=== PATIENT | female | born 1975 | race African-American/Black ===

== ENCOUNTER 2016-12-29 07:33 | Day surgery (SDC) | payer OTHER ==
[2016-12-28 10:20] VITALS: BMI 29.7
[2016-12-29] MEDS ORDERED: ePHEDrine SULFATE 50 MG/1 ML AMPULE ONE (08:11)
[2016-12-29] MEDS ORDERED: MIDAZOLAM HCL 2 MG/2 ML SINGLE DOSE VIAL ONE ×2 (08:12→09:04)
[2016-12-29] MEDS ORDERED: SUCCINYLCHOLINE CHLORIDE 200 MG/10 ML VIAL ONE (08:12)
[2016-12-29] MEDS ORDERED: PROPOFOL 20 ML ONE ×3 (08:12)
[2016-12-29] MEDS ORDERED: ONDANSETRON 4 MG/2 ML VIAL IVPUSH PRN (08:16)
[2016-12-29] MEDS ORDERED: PROMETHAZINE HCL 25 MG/1 ML VIAL IVPUSH PRN (08:16)
--- NOTE | 2016-12-29 08:26 | HP ---
Past Medical History - Admission Chief Complaint: Irregular menses History of Present Illness: 41 yo Para 4, with personal h/o thyroid disease and anemia is Pre op for D&C Hysteroscopy. 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 - Alcohol/Substance Use Hx Alcohol Use: Yes (OCCAS) - Social History History of Recent Travel: No Home Medications - Allergies Allergies/Adverse Reactions: Allergies Allergy/AdvReac Type Severity Reaction Status Date / Time No Known Allergies Allergy Verified 12/29/16 07:56 - Home Medications Home Medications: Ambulatory Orders NK [No Known Home Medication] 12/28/16 Family Disease History - Family Disease History Family History: Unremarkable Review of Systems - Review of Systems Constitutional: reports: No Symptoms Eyes: reports: No Symptoms HENT: reports: No Symptoms Neck: reports: No Symptoms Cardiovascular: reports: No Symptoms Respiratory: reports: No Symptoms Gastrointestinal: reports: No Symptoms Genitourinary: reports: Vaginal Bleeding Breasts: reports: No Symptoms Reported Musculoskeletal: reports: No Symptoms Integumentary: reports: No Symptoms Neurological: reports: No Symptoms Endocrine: reports: No Symptoms Hematology/Lymphatic: reports: No Symptoms Psychiatric: reports: No Symptoms Pain Intensity: 0 Physical Exam - Maternity Vital Signs: Vital Signs Temperature 97.8 F 12/29/16 07:57 Pulse Rate 80 12/29/16 07:57 Respiratory Rate 20 12/29/16 07:57 Blood Pressure 116/74 12/29/16 07:57 O2 Sat by Pulse Oximetry (%) 100 12/29/16 07:58 Constitutional: Yes: Well Nourished Eyes: Yes: Conjunctiva Clear HENT: Yes: Atraumatic Neck: Yes: Supple, Trachea Midline Cardiovascular: Yes: Regular Rate and Rhythm Lungs: Clear to auscultation - Abdominal Exam/OB Number of Fetuses: Single Presentation: Vertex Contractions: No Intensity: Mild/Mod - Vaginal Exam/OB Vaginal Bleediing: No - Physical Exam Psychiatric: Yes: Alert, Oriented Problem List - Problems (1) Irregular menstrual bleeding Code(s): N92.6 - IRREGULAR MENSTRUATION, UNSPECIFIED (2) Anemia Code(s): D64.9 - ANEMIA, UNSPECIFIED Assessment/Plan Irregular menstrual bleeding Anemia Pre op for D&C Hysteroscopy Consent signed Anesthesia to see patient
--- NOTE | 2016-12-29 08:27 | OP ---
Operative Note - Note: Operative Date: 12/29/16 Pre-Operative Diagnosis: Irregular menstrual bleeding Operation: D&C Hysteroscopy Post-Operative Diagnosis: Same as Pre-op Surgeon: Fiona Cortez Anesthesia: General
[2016-12-29] MEDS ORDERED: LACTATED RINGERS SOLUTION 1,000 ML IV SCH (08:30)
[2016-12-29] MEDS ORDERED: DESFLURANE GAS 240 ML BOTTLE IH ONE (08:57)
[2016-12-29] MEDS ORDERED: MIDAZOLAM HCL 2 MG/2 ML SINGLE DOSE VIAL IVPUSH PRN (09:17)
[2016-12-29] MEDS ORDERED: MIDAZOLAM HCL 2 MG/2 ML SINGLE DOSE VIAL IVPUSH ONE (09:20)
[2016-12-29 11:46] VITALS: TEMP 97.9
[2016-12-29 12:32] VITALS: BP 124/67; PULSE 75
--- NOTE | 2016-12-30 12:39 | OP ---
DATE OF OPERATION: 12/29/2016 PREOPERATIVE DIAGNOSIS: Irregular menstrual period associated with anemia. POSTOPERATIVE DIAGNOSIS: Irregular menstrual period associated with anemia. PROCEDURE: Dilation and curettage, hysteroscopy. SURGEON: Fiona Cortez MD ANESTHESIA: General. COMPLICATIONS: None. ESTIMATED BLOOD LOSS: Less than 10 mL. DESCRIPTION OF PROCEDURE: The patient was taken to the operating room where general anesthesia was administered. The patient was then placed in lithotomy position. She was then prepped and draped in proper sterile fashion. A weighted speculum was placed in the vagina. The anterior lip of the cervix was grasped with a single- tooth tenaculum. Then the uterus was then sounded. There was a significant amount of cervical stenosis. It was then successfully dilated with the help of Sánchez dilators; a 5-mm hysteroscope was then gently introduced into the uterine cavity. The cavity was visualized. Then a sharp curettage was then performed. The instruments were removed and patient was taken out of lithotomy position. She was taken to PACU in stable condition. PATHOLOGY: Endometrial curettings. Kvng [id number] MTDD
--- NOTE | 2017-01-01 09:12 | PATH ---
Surgical Pathology Report Patient Name: JOSE PATHAK [facility]. Rec. #: [id number] /Age/Gender: 1975 (Age: 41) / F Account: [id number] Location: [facility] SURGICAL Taken: 12/29/2016 Received: 12/29/2016 Reported: 01/01/2017 Physicians: Fiona Cortez M.D. Specimen(s) Received ENDOMETRIAL CURETTINGS Clinical History Irregular bleeding menstruation Final Diagnosis ENDOMETRIUM, CURETTING: SECRETORY ENDOMETRIUM, AND BENIGN CERVICAL TISSUE. NO ENDOMETRIAL HYPERPLASIA OR CARCINOMA IDENTIFIED. Electronically Signed Farrukh Khan M.D. Gross Description Received in formalin labeled "endometrial curettage" is a 3.0 x 2.5 x 0.3 cm aggregate of machado-red soft tissue fragments admixed with blood-tinged mucous. The formalin is filtered and the specimen is entirely submitted in one cassette. 12/29/201612/29/2016
== END 2016-12-29 11:40 | disposition home or self-care (01) ==
LOC: JASU-SURG 07:33
PROVIDERS: ATTEND Obstetrics & Gynecology
PROC: 0UDB8ZX Extraction of Endometrium, Via Natural or Artificial Opening Endoscopic, Diagnostic (ICD-10-PCS; principal; 2016-12-29 08:00)
DX: N93.9 Abnormal uterine and vaginal bleeding, unspecified (principal); D64.9 Anemia, unspecified
CPT/HCPCS: 84703; 88305-TC; 94760

== ENCOUNTER 2018-11-02 11:29 | Observation (INO) | payer OTHER ==
[2018-11-02] MEDS ORDERED: diazePAM 5 MG TABLET PO ONE (12:32)
[2018-11-02] MEDS ORDERED: diazePAM 5 MG TABLET ONE (12:35)
[2018-11-02 12:38] LABS: BASO % 0.9 % (0-2.0); EOS % 2.4 % (0-4.5); HEMOGLOBIN 9.9 GM/dL (10.7-15.3); LYMPH % 36.5 % (8-40); MCH 23.5 pg (25.7-33.7); MEAN CELL VOLUME 73.5 fl (80-96); MEAN PLT VOLUME 7.4 fl (7.5-11.1); MONO % 9.7 % (3.8-10.2); NEUT % 50.5 % (42.8-82.8); PLATELET COUNT 341 K/MM3 (134-434); RBC 4.22 M/mm3 (3.60-5.2); RDW 17.1 % (11.6-15.6); WHITE BLOOD COUNT 5.4 K/mm3 (4.0-10.0)
--- NOTE | 2018-11-02 13:10 | PDOC ---
History of Present Illness <Camille Bruno - Last Filed: 11/02/18 14:01> - History of Present Illness Initial Comments: 11/02/18 13:04 The patient is a 43 year old female, with a significant past medical history of hypothyroidism (not on medications) and cocaine abuse, who presents to the emergency department with, 3 months of intermittent body convulsions and seizure -like activity. Patient describes her convulsions as full body, lasting between 5min-1hour, and occurring every few days. Pt states that during these episodes, her entire body shakes. Her has witnessed several of them and report that she is sometimes awake during the episodes, sometimes unconscious. Pt states that she has complete recollection of these episodes. Pt initially went to [facility] after her first episode but eloped before her work up was complete. She has not seen a doctor since then. Pt endorses occasional ETOH and cocaine use. Last drink was 4 days ago. She denies any history of withdrawal seizures. Last cocaine use was 1 week ago. Pt denies any prior history of seizures. Denies head injury recently. She denies recent fevers. She denies recent nausea, vomit, diarrhea or constipation. She denies recent dysuria, frequency, urgency or hematuria. She denies recent chest pain, palpitations, or diaphoresis. While in ED, pt was witnessed to have an episode of convulsions. During this episode, pt was alert and responsive, able to follow commands. The episode terminated spontaneously after approx 2 minutes. Allergies: NKDA Past surgical history: D&C Hysteroscopy (2017). Social history: Day rehab for substance abuse at [facility]. Cocaine usage ( Last use- a week ago). Alcohol usage (a few beers last use: 3). <Esvin Trujillo - Last Filed: 11/02/18 14:25> - General Chief Complaint: Pain Stated Complaint: SEIZURE RULEOUT Time Seen by Provider: 11/02/18 11:49 Past History <Camille Bruno - Last Filed: 11/02/18 14:01> - Past Medical History Anemia: Yes Asthma: No Cancer: No Cardiac Disorders: No CVA: No COPD: No CHF: No Dementia: No Diabetes: No GI Disorders: No Disorders: No HTN: No Hypercholesterolemia: No Liver Disease: No Seizures: No Thyroid Disease: Yes ("UNDERACTIVE") - Surgical History Abdominal Surgery: Yes ("NE[place]") - Suicide/Smoking/Psychosocial Hx Smoking History: Current some day smoker Have you smoked in the past 12 months: No 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, 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 No weakness. HEAD, EYES, EARS, NOSE AND THROAT: No change in vision. No ear pain or discharge. No sore throat. CARDIOVASCULAR: No chest pain, no shortness of breath, no loss of consciousness RESPIRATORY: No cough, wheezing, or hemoptysis. GASTROINTESTINAL: No nausea, vomiting, diarrhea or constipation. GENITOURINARY: No dysuria, frequency, or change in urination. MUSCULOSKELETAL: No joint or muscle swelling or pain. No neck or back pain. SKIN: No rash NEUROLOGIC: + convulsions, No vertigo, no change in strength/sensation. ENDOCRINE: No increased thirst. No abnormal weight change. HEMATOLOGIC/LYMPHATIC: No anemia, easy bleeding, or history of blood clots. ALLERGIC/IMMUNOLOGIC: No hives or skin allergy. <RonnieEsvin - Last Filed: 11/02/18 14:25> *Physical Exam - Vital Signs Last Vital Signs Temp Pulse Resp BP Pulse Ox 97.7 F 86 20 135/85 100 11/02/18 11:37 11/02/18 13:31 11/02/18 13:31 11/02/18 13:31 11/02/18 13:31 <Camille Bruno - Last Filed: 11/02/18 14:01> - Vital Signs Last Vital Signs Temp Pulse Resp BP Pulse Ox 97.7 F 73 18 132/76 100 11/02/18 11:37 11/02/18 11:37 11/02/18 11:37 11/02/18 11:37 11/02/18 11:37 - Physical Exam Comments: 11/02/18 13:11 GENERAL: Awake, alert, and fully oriented, in no acute distress. HEAD: No signs of trauma EYES: PERRLA, EOMI, sclera anicteric, conjunctiva clear ENT: Auricles normal inspection, hearing grossly normal, nares patent, oropharynx clear without exudates. Moist mucosa NECK: Nontender, no stepoffs, Normal ROM, supple, no lymphadenopathy, JVD, or masses LUNGS: Breath sounds equal, clear to auscultation bilaterally. No wheezes, and no crackles HEART: Regular rate and rhythm, normal S1 and S2, no murmurs, rubs or gallops ABDOMEN: Soft, nontender, normoactive bowel sounds. No guarding, no rebound. No masses EXTREMITIES: Normal range of motion, no edema. No clubbing or cyanosis. No cords, erythema, or tenderness NEUROLOGICAL: Cranial nerves II through XII intact. 5/5 strength and sensation in all extremities, Normal speech, normal gait, normal cerebellar function SKIN: Warm, Dry, normal turgor, no rashes or lesions noted. <Esvin Trujillo - Last Filed: 11/02/18 14:25> Moderate Sedation - Procedure Monitoring Vital Signs: Procedure Monitoring Vital Signs Temperature 97.7 F 11/02/18 11:37 Pulse Rate 86 11/02/18 13:31 Respiratory Rate 20 11/02/18 13:31 Blood Pressure 135/85 11/02/18 13:31 O2 Sat by Pulse Oximetry (%) 100 11/02/18 13:31 <Camille Bruno - Last Filed: 11/02/18 14:01> - Procedure Monitoring Vital Signs: Procedure Monitoring Vital Signs Temperature 97.7 F 11/02/18 11:37 Pulse Rate 73 11/02/18 11:37 Respiratory Rate 18 11/02/18 11:37 Blood Pressure 132/76 11/02/18 11:37 O2 Sat by Pulse Oximetry (%) 100 11/02/18 11:37 <Esvin Trujillo - Last Filed: 11/02/18 14:25> ED Treatment Course - LABORATORY CBC & Chemistry Diagram: 11/02/18 12:20 11/02/18 12:20 - ADDITIONAL ORDERS Additional order review: Laboratory Results 11/02/18 11/02/18 12:20 12:20 Sodium 137 Potassium 4.2 Chloride 106 Carbon Dioxide 24 Anion Gap 7 L BUN 9 Creatinine 0.8 Creat Clearance w eGFR > 60 Random Glucose 93 Lactic Acid 2.7 H* Calcium 8.5 Total Bilirubin 0.4 AST 13 L ALT 19 Alkaline Phosphatase 102 Total Protein 7.5 Albumin 3.5 TSH 0.63 11/02/18 12:20 RBC 4.22 MCV 73.5 L MCHC 32.0 RDW 17.1 H MPV 7.4 L Neutrophils % 50.5 Lymphocytes % 36.5 Monocytes % 9.7 Eosinophils % 2.4 Basophils % 0.9 - Medications Given in the ED: ED Medications Discontinued Medications Generic Name Dose Route Start Last Admin Trade Name Freq PRN Reason Stop Dose Admin Diazepam 5 mg 11/02/18 12:32 11/02/18 12:36 Valium - PO 11/02/18 12:33 5 mg ONCE ONE Administration Lorazepam 2 mg 11/02/18 13:26 11/02/18 13:30 Ativan Injection - IVPUSH 11/02/18 13:27 2 mg ONCE ONE Administration <Camille Bruno - Last Filed: 11/02/18 14:01> - LABORATORY CBC & Chemistry Diagram: 11/02/18 12:20 11/02/18 12:20 - ADDITIONAL ORDERS Additional order review: 11/02/18 12:20 RBC 4.22 MCV 73.5 L MCHC 32.0 RDW 17.1 H MPV 7.4 L Neutrophils % 50.5 Lymphocytes % 36.5 Monocytes % 9.7 Eosinophils % 2.4 Basophils % 0.9 - RADIOLOGY Radiology Studies Ordered: Category Date Time Status HEAD CT WITHOUT CONTRAST [CT] Stat CT Scan 11/02/18 12:17 Ordered CHEST X-RAY PORTABLE* [RAD] Stat Radiology 11/02/18 12:19 Completed - Medications Given in the ED: ED Medications Discontinued Medications Generic Name Dose Route Start Last Admin Trade Name Freq PRN Reason Stop Dose Admin Diazepam 5 mg 11/02/18 12:32 11/02/18 12:36 Valium - PO 11/02/18 12:33 5 mg ONCE ONE Administration <Esvin Trujillo - Last Filed: 11/02/18 14:25> Medical Decision Making - Medical Decision Making 11/02/18 13:[address] Doyle, neurologist theater education teacher's answering service, awaiting theater education teacher back. 14:[address] Doyle, case discussed. <Camilel Bruno - Last Filed: 11/02/18 14:01> - Critical Care Time Total Critical Care Time (minutes): 60 Critical Care Statement: The care of this patient involved high complexity decision making to prevent further life threatening deterioration of the patient 's condition and/or to evaluate & treat vital organ system(s) failure or risk of failure. - Medical Decision Making 11/02/18 13:13 43 F with 3 months of intermittent seizure-like activity. Suspect pseudoseizures. However, cannot rule out underlying seizure disorder. - CT head - Labs - Utox - Benzos PRN 11/02/18 13:22 Pt had another episode in CT scanner. Rapid response called. Pt was encountered shaking in [facility]. 2mg ativan IV given with termination of shaking. Pt returned to room on monitor 11/02/18 14:04 Dr. Doyle consulted. He recommends starting Keppra 500mg. Will admit for further w/u of possible seizures. 11/02/18 14:[address] Fox <Esvin Trujillo - Last Filed: 11/02/18 14:25> *DC/Admit/Observation/Transfer - Attestations Scribe Attestion: 11/02/18 13:42 Documentation prepared by Camille Bruno, acting as medical record technician for Esvin Trujillo MD. <Camille Bruno - Last Filed: 11/02/18 14:01> - Discharge Dispostion Decision to Admit order: Yes - Attestations Physician Attestion: 11/02/18 14:25 I, Dr. Esvin Trujillo MD, attest that this document has been prepared under my direction and personally reviewed by me in its entirety. I further attest, that it accurately reflects all work, treatment, procedures and medical decision -making performed by me. <Esvin Trujillo - Last Filed: 11/02/18 14:25> Diagnosis at time of Disposition: Seizure
[2018-11-02 13:17] LABS: ALBUMIN 3.5 g/dl (3.4-5.0); ALK PHOS 102 U/L (45-117); ANION GAP 7 MMOL/L (8-16); BILIRUBIN,TOTAL 0.4 mg/dL (0.2-1); BLOOD UREA NITROGEN 9 mg/dL (7-18); CALCIUM 8.5 mg/dL (8.5-10.1); CHLORIDE 106 mmol/L (98-107); CO2 24 mmol/L (21-32); CREATININE 0.8 mg/dL (0.55-1.3); GLUCOSE,RANDOM 93 mg/dL (74-106); POTASSIUM 4.2 mmol/L (3.5-5.1); SGOT/AST 13 U/L (15-37); SGPT/ALT 19 U/L (13-61); SODIUM 137 mmol/L (136-145); TOT PROT 7.5 g/dl (6.4-8.2)
[2018-11-02] MEDS ORDERED: LORazepam 2 MG/ML SDV VIAL ONE (13:17)
[2018-11-02] MEDS ORDERED: levETIRAcetam 500 MG/5 ML INJECTION VIAL IVPB ONE ×2 (14:04→14:06)
[2018-11-02] MEDS ORDERED: ACETAMINOPHEN 325 MG TABLET (FP) PO PRN (14:54)
[2018-11-02] MEDS ORDERED: ONDANSETRON 4 MG/2 ML VIAL IVPUSH PRN (14:54)
[2018-11-02] MEDS ORDERED: SODIUM CHLORIDE 1,000 ML IV SCH (15:00)
--- NOTE | 2018-11-02 15:04 | HP ---
Admitting History and Physical - Admission Chief Complaint: I'm having seizures History of Present Illness: Mrs Jacobo is a pleasant 43 year old female who comes in complaining of seizures. She says that she has prior to 3 months ago she has not had any medical problems or seizures. She started to seize 3 months ago. She says that she is normally aware when it is happening, she can feel her body shaking but she has no control over it. She says a few times she does not recall the seizure episode, but her told her she had it. She has no prodrome or post ictal state associated with it. She has not bit her tongue during the episode. She has not experienced incontinence of bowel or bladder with it. She says it began infrequently but it is becoming more frequent. She has experienced 3 episodes prior to this visit and had 3 episodes in the ED. She currently is feeling better. She denies fevers, chills, lightheadedness, dizziness, passing out, chest pain or pressure, shortness of breath, coughing, abdominal pain, nausea, vomiting, diarrhea, constipation, difficulty or pain on urination, or swelling. 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 - Alcohol/Substance Use Hx Alcohol Use: Yes (OCCAS) History of Substance Use: reports: Cocaine - Social History Usual Living Arrangement: Yes: With Spouse ADL: Independent History of Recent Travel: No Home Medications - Allergies Allergies/Adverse Reactions: Allergies Allergy/AdvReac Type Severity Reaction Status Date / Time No Known Allergies Allergy Verified 12/29/16 07:56 - Home Medications Home Medications: Ambulatory Orders NK [No Known Home Medication] 12/28/16 Family Disease History - Family Disease History Family Disease History: Diabetes: Sister, Other: Mother (HIV/AIDS) Review of Systems Findings/Remarks: Full review of systems obtained, as per HPI and otherwise negative Physical Examination Vital Signs: Vital Signs Temperature 36.5 C 11/02/18 11:37 Pulse Rate 86 11/02/18 13:31 Respiratory Rate 20 11/02/18 13:31 Blood Pressure 135/85 11/02/18 13:31 O2 Sat by Pulse Oximetry (%) 100 11/02/18 13:31 Constitutional: Yes: Well Nourished, No Distress, Calm Eyes: Yes: Conjunctiva Clear, EOM Intact, PERRL HENT: Yes: Atraumatic, Normocephalic Cardiovascular: Yes: Regular Rate and Rhythm. No: Gallop, Murmur, Rub Respiratory: Yes: Regular, CTA Bilaterally. No: Rales, Rhonchi, Wheezes Gastrointestinal: Yes: Normal Bowel Sounds, Soft. No: Distention, Tenderness Extremities: Yes: WNL Edema: No Labs: CBC, BMP 11/02/18 12:20 11/02/18 12:20 Imaging - Results Chest X-ray: Report Reviewed, Image Reviewed Cat Scan: Report Reviewed Problem List - Problems (1) Seizure Assessment/Plan: -unclear if true seizure vs pseudoseizure -could be related to alcohol or cocaine use -consult neurology -admit for observation -will start on keppra 500mg bid -prn IV ativan for breakthrough seizure -fall risk precautions Code(s): R56.9 - UNSPECIFIED CONVULSIONS (2) Anemia Assessment/Plan: -microcytic -considering age, suspect iron deficiency from menstrual cycle -check anemia labs -no need for transfusion Code(s): D64.9 - ANEMIA, UNSPECIFIED (3) Lactic acid acidosis Assessment/Plan: -possibly seizure related -will hydrate -recheck in am Code(s): E87.2 - ACIDOSIS
[2018-11-02 17:30] VITALS: BMI 34.4
[2018-11-02] MEDS ORDERED: ACETAMINOPHEN/CAFFEINE/BUTALBITAL 1 TAB PO ONE (19:45)
[2018-11-02] MEDS: levETIRAcetam 500 MG TABLET (FP) PO SCH (22:17)
[2018-11-02 23:41] LABS: URINE APPEARANCE SLCLOUDY; URINE BILIRUBIN NEGATIVE (<2.0 mg/dL); URINE COLOR LTYELLOW; URINE GLUCOSE (UA) NEGATIVE (NEGATIVE); URINE KETONE NEGATIVE (NEGATIVE); URINE LEUK ESTERASE NEGATIVE (NEGATIVE); URINE NITRITE NEGATIVE (NEGATIVE); URINE PROTEIN NEGATIVE (NEGATIVE); URINE UROBILINOGEN NEGATIVE mg/dL (0.2-1.0)
[2018-11-02 23:58] LABS: METHADONE, UR NEGATIVE ng/ml (CUTOFF=300); OPIATES, URI NEGATIVE ng/ml (CUTOFF=300); PHENCYCLIDINE,URINE NEGATIVE ng/ml (CUTOFF=25); URINE AMPHETAMINES NEGATIVE ng/ml (CUTOFF=500); URINE BARBITURATES NEGATIVE ng/ml (CUTOFF=200); URINE BENZODIAZEPINES NEGATIVE ng/ml (CUTOFF=200)
[2018-11-02 23:59] LABS: COCAINE, UR POSITIVE ng/ml (CUTOFF=300)
[2018-11-03] MEDS ORDERED: LORazepam 2 MG/ML SDV VIAL IVPUSH PRN (00:48)
[2018-11-03 07:21] LABS: BASO % 0.9 % (0-2.0); EOS % 3.4 % (0-4.5); HEMATOCRIT 29.7 % (32.4-45.2); HEMOGLOBIN 9.6 GM/dL (10.7-15.3); LYMPH % 36.7 % (8-40); MCH 23.8 pg (25.7-33.7); MCHC 32.4 g/dl (32.0-36.0); MEAN CELL VOLUME 73.3 fl (80-96); MEAN PLT VOLUME 7.7 fl (7.5-11.1); PLATELET COUNT 323 K/MM3 (134-434); RBC 4.05 M/mm3 (3.60-5.2); RDW 16.8 % (11.6-15.6); WHITE BLOOD COUNT 4.2 K/mm3 (4.0-10.0)
[2018-11-03 07:34] LABS: ANION GAP 5 MMOL/L (8-16); BLOOD UREA NITROGEN 10 mg/dL (7-18); CALCIUM 8.5 mg/dL (8.5-10.1); CHLORIDE 108 mmol/L (98-107); CO2 23 mmol/L (21-32); CREATININE 0.8 mg/dL (0.55-1.3); GLUCOSE,RANDOM 93 mg/dL (74-106); MAGNESIUM 1.9 mg/dL (1.8-2.4); PHOSPHOROUS 4.1 mg/dL (2.5-4.9); POTASSIUM 4.2 mmol/L (3.5-5.1); SODIUM 135 mmol/L (136-145)
[2018-11-03] MEDS: levETIRAcetam 500 MG TABLET (FP) PO SCH (10:29)
--- NOTE | 2018-11-03 11:54 | EKG ---
Test Reason : Blood Pressure : / mmHG Vent. Rate : 074 BPM Atrial Rate : 074 BPM P-R Int : 138 ms QRS Dur : 086 ms QT Int : 404 ms P-R-T Axes : 052 026 040 degrees QTc Int : 448 ms NORMAL SINUS RHYTHM NORMAL ECG NO PREVIOUS ECGS AVAILABLE Confirmed by OLINDA MORA MD ([id number]) on 11/03/2018 11:53:44 AM Referred By: Confirmed By:OLINDA MORA MD
--- NOTE | 2018-11-03 12:23 | CON.NEURO ---
Consult Consult Specialty:: Yanira Referred by:: ED - History of Present Illness History of Present Illness: 43-year-old right-handed -[place] woman with history of substance abuse presented to the hospital with 3 months history of questionable seizure-like activity. I spoke to the emergency room last night patient had 3 at its of altered sensorium questionable seizure in the emergency room decision was made to keep the patient for observation for 24 hours. There is no family history of seizure patient and he presented to [facility] and she signed out AMA. Patient since admission to the floor and started the Keppra 500 mg once daily note of seizure patient was reviewed with the rell at the bedside. 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 - Social History ADL: Independent History of Recent Travel: No Home Medications - Allergies Allergies/Adverse Reactions: Allergies Allergy/AdvReac Type Severity Reaction Status Date / Time No Known Allergies Allergy Verified 12/29/16 07:56 - Home Medications Home Medications: Ambulatory Orders NK [No Known Home Medication] 12/28/16 Family Disease History - Family Disease History Family Disease History: Diabetes: Sister, Other: Mother (HIV/AIDS) Review of Systems - Review of Systems Constitutional: reports: No Symptoms Eyes: reports: No Symptoms Neurological: reports: Headache, Incoordination, Numbness Physical Exam-Neuro Vital Signs: Vital Signs Temperature 97.8 F 11/03/18 05:50 Pulse Rate 79 11/03/18 05:50 Respiratory Rate 20 11/03/18 07:00 Blood Pressure 103/62 11/03/18 05:50 O2 Sat by Pulse Oximetry (%) 98 11/03/18 07:00 Constitutional: Yes: Well Nourished Neck: Yes: WNL Cardiovascular: Yes: WNL Labs: CBC, BMP 11/03/18 06:30 11/03/18 06:30 - Neuro Exam Level Of Consciousness: Yes: Oriented to Person, Oriented to Place, Oriented to Time Eyes: Yes: PERRLA Speech: WNL Dominant Hand: Right Cranial Nerves II-XII Intact: Yes Gag: Present DTR's: 1+ Left Bicep, 1+ Right Bicep, 1+ Left Brachioradialis, 1+ Right Brachioradialis Response to light touch: Normal Response to pain prick: Normal Response to temperature: Normal Response to vibration: Normal Motor Strength: 3/5: Right Arm, Left Leg, Right Leg, 4/5: Left Arm Gait: Deferred Imaging - Results Cat Scan: Image Reviewed Problem List - Problems (1) Seizure Assessment/Plan: seizure versus pseudoseizure An anxiety Polysubstance abuse 1.. Seizure precautions. 2. Neurologically patient can be discharged home with workup of MRI and EEG as an outpatient 3. Continue Keppra the same. 4. Letter to the day program. 5. Patient was counseled regarding the illicit drug usage Code(s): R56.9 - UNSPECIFIED CONVULSIONS
[2018-11-03] MEDS ORDERED: FLUCONAZOLE 150 MG TABLET PO ONE (12:46)
[2018-11-03 12:58] VITALS: BP 128/77; PULSE 86; TEMP 97.7
--- NOTE | 2018-11-03 13:13 | DS ---
Physical Examination Vital Signs: Vital Signs Temperature 36.5 C 11/03/18 09:00 Pulse Rate 86 11/03/18 09:00 Respiratory Rate 19 11/03/18 13:04 Blood Pressure 128/77 11/03/18 09:00 O2 Sat by Pulse Oximetry (%) 100 11/03/18 13:04 Constitutional: Yes: Well Nourished, No Distress, Calm Cardiovascular: Yes: Regular Rate and Rhythm. No: Gallop, Murmur, Rub Respiratory: Yes: Regular, CTA Bilaterally. No: Rales, Rhonchi, Wheezes Gastrointestinal: Yes: Normal Bowel Sounds, Soft. No: Distention, Tenderness Extremities: Yes: WNL Edema: No Labs: CBC, BMP 11/03/18 06:30 11/03/18 06:30 Discharge Summary Reason For Visit: SEIZURE Current Active Problems Lactic acid acidosis (Acute) Seizure (Acute) Hospital Course: Ms Jacobo is a 43 year old female who came in with seizures vs pseudoseizures. She had a CT scan which was negative. She was started on keppra and admitted under observation. She was seen by neurology and cleared. She is safe for discharge home with follow up with Dr Doyle. Condition: Good - Instructions Diet, Activity, Other Instructions: No driving until approved by Dr Doyle. Otherwise can resume previous diet and activity. Disposition: HOME - Home Medications Comprehensive Discharge Medication List: Ambulatory Orders levETIRAcetam [Keppra -] 500 mg PO BID #60 tablet 11/03/18
[2018-11-04 07:12] LABS: SERUM IRON SATURATION 10 % (15-55); TOTAL IRON BINDING CAPACITY 319 ug/dL (250-450); UIBC 286 ug/dL (131-425)
== END 2018-11-03 14:19 | disposition home or self-care (01) ==
LOC: JER 11:29 → JERBED 14:25 → J6S 16:51
PROVIDERS: ADMIT Internal Medicine; ATTEND Internal Medicine
PROC: 3E033GC Introduction of Other Therapeutic Substance into Peripheral Vein, Percutaneous Approach (ICD-10-PCS; principal; 2018-11-02)
PROC: 3E0337Z Introduction of Electrolytic and Water Balance Substance into Peripheral Vein, Percutaneous Approach (ICD-10-PCS; 2018-11-02)
DX: R56.9 Unspecified convulsions (principal); E03.9 Hypothyroidism, unspecified; F14.10 Cocaine abuse, uncomplicated; F17.210 Nicotine dependence, cigarettes, uncomplicated; D64.9 Anemia, unspecified; E87.2 Acidosis
CPT/HCPCS: 36415; 70450-TC; 71045-TC-FY; 80048; 80053; 80307; 81003; 82607; 82728; 82746; 83540; 83550; 83605; 83735; 84100; 84146; 84443; 84466; 84703; 85025; 93005; 93010; 96374; 96375; 96376; 99285-25; G0378; J7030

== ENCOUNTER 2019-01-13 15:17 | Emergency (ER) | payer OTHER ==
[2019-01-13 15:26] VITALS: TEMP 97.8; BMI 32.8
--- NOTE | 2019-01-13 16:05 | PDOC ---
History of Present Illness - General Chief Complaint: Weakness Stated Complaint: SEIZURE Time Seen by Provider: 01/13/19 15:47 - History of Present Illness Initial Comments: The pt is a 43F w/ a reported history of seizure d/o (since Aug,), cocaine use, and EtOH use who presents for evaluation s/p 3 reported seizures at her Neurologist's office. (Dr. Hanna Doyle) Pt denies bowel or bladder incontinence. Since that time she states she feels at her baseline. Reports back pain that is typical for her s/p seizure. Also reports falling off of the exam table at her 01/13/19 16:57 Past History - Past Medical History Allergies/Adverse Reactions: Allergies Allergy/AdvReac Type Severity Reaction Status Date / Time No Known Allergies Allergy Verified 12/29/16 07:56 Home Medications: Ambulatory Orders levETIRAcetam [ra -] 500 mg PO BID #60 tablet 11/03/18 Naproxen Sodium 220 mg PO DAILY 01/13/19 Anemia: Yes Asthma: No Cancer: No Cardiac Disorders: No CVA: No COPD: No CHF: No Dementia: No Diabetes: No GI Disorders: No Disorders: No HTN: No Hypercholesterolemia: No Liver Disease: No Seizures: Yes Thyroid Disease: Yes ("UNDERACTIVE") - Surgical History Abdominal [facility]: Yes [facility] - Immunization History Immunization Up to Date: Yes - Suicide/Smoking/Psychosocial Hx Smoking History: Never smoked Have you smoked in the past 12 months: No 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, when did you quit?: TEENAGER 'Breaking Loose' booklet given: 12/05/16 Hx Alcohol Use: No Drug/Substance Use Hx: No Substance Use Type: Alcohol, Cocaine Hx Substance Use Treatment: Yes Review of Systems - Review of Systems Able to Perform ROS?: Yes Comments:: GENERAL/CONSTITUTIONAL: No fever or chills. No weakness HEAD, EYES, EARS, NOSE AND THROAT: No change in vision. No ear pain or discharge. No sore throat CARDIOVASCULAR: No chest pain or shortness of breath RESPIRATORY: Denies cough, hemoptysis GASTROINTESTINAL: No nausea, vomiting, diarrhea or constipation GENITOURINARY: No dysuria, frequency, or change in urination MUSCULOSKELETAL: +chronic pack pain SKIN: No rash NEUROLOGIC: No headache, vertigo, or change in strength/sensation ENDOCRINE: No increased thirst. No abnormal weight change HEMATOLOGIC/LYMPHATIC: No anemia, easy bleeding, or history of blood clots ALLERGIC/IMMUNOLOGIC: No hives or skin allergy 01/13/19 16:02 Is the patient limited Kiswahili proficient: No *Physical Exam - Vital Signs Last Vital Signs Temp Pulse Resp BP Pulse Ox 97.8 F 88 17 113/73 98 01/13/19 15:25 01/13/19 15:25 01/13/19 15:25 01/13/19 15:25 01/13/19 15:25 - Physical Exam Comments: GENERAL: Awake, alert, and oriented to person/place/time, in no acute distress HEAD: No signs of trauma, normocephalic, atraumatic EYES: PERRLA, EOMI, sclera anicteric, conjunctiva clear ENT: Hearing grossly normal, nares patent, oropharynx clear without exudates. No uvular deviation LUNGS: No distress, speaks full sentences, clear to auscultation bilaterally HEART: Regular rate and rhythm, normal S1 and S2, no murmurs appreciated, peripheral pulses normal and equal bilaterally ABDOMEN: Soft, nontender, normoactive bowel sounds. No guarding, no rebound EXTREMITIES: Ambulating in ED; general tenderness of R thigh; no gross bony deformity; remainder of extremities w/o TTP and FROM in all 4 extremities NEUROLOGICAL: Cranial nerves II through XII grossly intact. Normal speech, no focal sensorimotor deficits SKIN: Warm, Dry 01/13/19 16:03 ED Treatment Course - LABORATORY CBC & Chemistry Diagram: 01/13/19 16:20 01/13/19 16:20 Medical Decision Making - Medical Decision Making The pt is a 43F w/ a history of seizure d/o, cocaine use d/o, and EtOH abuse who presents for evaluation s/p seizure x3 approximately 1 hr prior to arrival. Pt also endorses R thigh pain but is ambulating in ED. ED Course Labs sent ECG Keppra 1g IV once Ofirmev for pain 01/13/19 17:13 ECG w/ NSR; HR 86; no evidence of acute ischemia Labs unremarkable Pt discussed w/ Dr. Doyle, plan for Neurology f/u. Pt to call office tomorrow Oxy and Toradol for pain Pt ambulating in ED Plan for D/C w/ Neurology f/u Discharge instructions and return precautions given Pt in agreement and verbalized understanding Dispo: home 01/13/19 17:44 *DC/Admit/Observation/Transfer Diagnosis at time of Disposition: Seizure disorder, Seizure-like activity - Discharge Dispostion Disposition: HOME Condition at time of disposition: Improved Decision to Admit order: No - Referrals Referrals: Hanna Doyle MD [Staff Physician] - - Patient Instructions Printed Discharge Instructions: DI for Seizure Disorder -- Adult Additional Instructions: You were seen in the Emergency Department for evaluation after a seizure. Your labs were unremarkable. You were given Keppra. Call Dr. Doyle's office tomorrow for follow up. Return to the Emergency Department for persistent seizure activity, fevers/chills, chest pain, trouble breathing, changes in sensation. For pain you may take Tylenol 650mg every 12 hours and Ibuprofen 600mg every 12 hours, alternating the two so that you are taking one of them every 6 hours. Take as needed. - Post Discharge Activity Forms/Work/School Notes: Back to Work
[2019-01-13] MEDS ORDERED: ACETAMINOPHEN 1000 MG/100 ML VIAL (NON FORMULARY) IVPB ONE (16:09)
[2019-01-13] MEDS ORDERED: ACETAMINOPHEN INJECTION 100 ML IVPB ONE (16:12)
[2019-01-13 16:35] LABS: BASO % 1.1 % (0-2.0); EOS % 2.6 % (0-4.5); HEMATOCRIT 32.4 % (32.4-45.2); HEMOGLOBIN 9.8 GM/dL (10.7-15.3); LYMPH % 29.5 % (8-40); MCH 21.7 pg (25.7-33.7); MCHC 30.2 g/dl (32.0-36.0); MEAN PLT VOLUME 7.5 fl (7.5-11.1); MONO % 7.4 % (3.8-10.2); NEUT % 59.4 % (42.8-82.8); PLATELET COUNT 386 K/MM3 (134-434); RDW 18.3 % (11.6-15.6); WHITE BLOOD COUNT 5.9 K/mm3 (4.0-10.0)
--- NOTE | 2019-01-13 16:51 | PDOC ---
Documentation entered by Estuardo Nelson SCRIBE, acting as scribe for Deloris Sanchez MD. Deloris Sanchez MD: This documentation has been prepared by the navdeepibe, Estuardo Nelson SCRIBE, under my direction and personally reviewed by me in its entirety. I confirm that the documentation accurately reflects all work, treatment, procedures, and medical decision making performed by me. Attending Attestation - Resident Resident Name: BryceOsvaldo - ED Attending Attestation I have performed the following: I have examined & evaluated the patient, The case was reviewed & discussed with the resident, I agree w/resident's findings & plan - HPI HPI: 01/13/19 17:39 The patient is a 43 year old female with a significant past medical history of alcohol abuse, cocaine use, seizure vs pseudoseizure, anxiety who presents to the emergency department s/p 3 seizure episodes today at neurologists office.. The patient reports that she was at her doctor office today when she had 3 seizure episodes at about 3:30 this afternoon. The patient reports some associated back and right buttock pain secondary to falling off of the exam table at her appointment, but able to ambulate. She states that she has been compliant with her medications (Keppra). The patient endorses daily wine drinking and cocaine use 6 days ago. She denies any other triggers. previous admission in 2019 several months ago for seizure vs pseudoseizure activities, was cleared from neuro standpoint. currently on keppra 500mg BID. Neuro: Dr Doyle 01/13/19 17:40 - Physicial Exam PE: 01/13/19 17:15 Agree with the resident's HPI and PE as documented in the electronic medical record. NAD, well appearing, PERRL, EOMI, MMM, nl conjunctiva, anicteric; neck supple. lungs clear, RRR, abdomen soft nontender. LACKEY x4, no focal neuro deficits. No peripheral edema. normal color for ethnicity, WWP. +right buttock and thigh TTP, pelvis stable, FROM, no midline back tenderness, FROM in spine. SILT in all extrem. 5/5 plantar and dorsiflexion 01/13/19 17:40 - Medical Decision Making 01/13/19 16:50 See HPI for details. Prior notes reviewed, including admissions, discharges and consultations. Vital signs reviewed, wnl. DDX sz, electrolyte/metabolic derangements, infection, med effect, med noncompliance, laboratory results and imaging reviewed, basic labs and lytes wnl, EKG normal sinus rhythm at 86 bpm, no interval abnormalities, narrow QRS, ST and T wave segments and morphology normal. Nonspecific T wave abnormalities, similar EKG to prior. no acute changes, no e/o ischemia. ED course - no acute events, well appearing, c/o primarily right buttock pain s/p fall - able to ambulate, no neuro deficits, likely contusion and unlikely fx as she is ambulatory. - prior labs and urine, +cocaine. today's labs wnl, normal ck and lytes. - analgesia here with nsaid, tylenol, low dose oxy x 1 dose; will not rx meds such as opioids on discharge, as this is likely contusion and not fracture. - keppra 1g load, discuss titration of meds with neuro at next appt. - resident spoke with Dr Doyle, outpatient followup. stable for discharge, agree with plan - compliance with meds encouraged, including keppra and minimize stressors. otc meds for her thigh pain/contusion post fall. no midline sx to suggest compression fx or neuro abnormalities. Discharge: Pt to be discharged in stable condition. Patient and family made aware of impression and plan, return precautions discussed (including but not limited to worsening pain or symptoms), fevers, or signs of infection, chest pain, respiratory distress, inability to tolerate oral intake, dehydration, syncope, or neurologic changes). Follow up with PMD and/or neuro specialist - Dr Doyle. as recommended, follow up information provided, take medications as instructed for duration of time. continue with supportive care, avoid triggers and precipitants. All questions answered to patient's satisfaction and expressed understanding and comfort with this. Patient does not suffer from an acute life-threatening medical condition at this time and is safe for outpatient follow-up. 01/13/19 18:11 01/13/19 18:13 Heart Score/ECG Review #1 ECG reviewed & interpreted by me at: 17:55 General ECG Interpretation: Sinus Rhythm, Normal Rate, Normal Intervals Compared to previous ECG there are: No significant change 01/13/19 18:12 EKG normal sinus rhythm at 86 bpm, no interval abnormalities, narrow QRS, ST and T wave segments and morphology normal. nonspecific T wave abnormalities, similar to prior. no e/o ischemia 01/13/19 18:13 01/13/19 18:13
[2019-01-13 17:02] LABS: ALBUMIN 3.5 g/dl (3.4-5.0); BILIRUBIN,TOTAL 0.4 mg/dL (0.2-1); CALCIUM 9.2 mg/dL (8.5-10.1); CREATININE 0.8 mg/dL (0.55-1.3); POTASSIUM 3.9 mmol/L (3.5-5.1); TOT PROT 7.4 g/dl (6.4-8.2)
[2019-01-13] MEDS ORDERED: levETIRAcetam 500 MG/5 ML INJECTION VIAL IVPB ONE ×2 (17:04→17:20)
[2019-01-13] MEDS ORDERED: IBUPROFEN 600 MG TABLET (FP) PO ONE (17:25)
[2019-01-13] MEDS ORDERED: CYCLOBENZAPRINE HCL 5 MG TABLET PO ONE (17:27)
[2019-01-13] MEDS ORDERED: oxyCODONE HCL 5 MG TABLET PO ONE (17:38)
[2019-01-13] MEDS ORDERED: KETOROLAC TROMETHAMINE 15 MG/ML VIAL IVPUSH ONE (17:39)
[2019-01-13 17:58] VITALS: BP 119/76; PULSE 94
[2019-01-13] MEDS ORDERED: oxyCODONE HCL 5 MG TABLET ONE (18:01)
[2019-01-13] MEDS ORDERED: KETOROLAC TROMETHAMINE 15 MG/ML VIAL ONE (18:01)
[2019-01-13 19:45] LABS: ANISOCYTOSIS 2+
--- NOTE | 2019-01-14 13:44 | EKG ---
Test Reason : Blood Pressure : / mmHG Vent. Rate : 086 BPM Atrial Rate : 086 BPM P-R Int : 132 ms QRS Dur : 078 ms QT Int : 384 ms P-R-T Axes : 055 019 041 degrees QTc Int : 459 ms NORMAL SINUS RHYTHM POSSIBLE LEFT ATRIAL ENLARGEMENT BORDERLINE ECG WHEN COMPARED WITH ECG OF 02-NOV-2018 12:43, NO SIGNIFICANT CHANGE WAS FOUND Confirmed by MD Agarwal Daniel ([id number]) on 01/14/2019 1:44:02 PM Referred By: Confirmed By:Jimmy Agarwal MD
== END 2019-01-13 18:36 | disposition home or self-care (01) ==
LOC: JER 15:17
PROC: 3E033GC Introduction of Other Therapeutic Substance into Peripheral Vein, Percutaneous Approach (ICD-10-PCS; principal; 2019-01-13)
PROC: 3E033NZ Introduction of Analgesics, Hypnotics, Sedatives into Peripheral Vein, Percutaneous Approach (ICD-10-PCS; 2019-01-13)
PROC: 3E0333Z Introduction of Anti-inflammatory into Peripheral Vein, Percutaneous Approach (ICD-10-PCS; 2019-01-13)
DX: G40.909 Epilepsy, unspecified, not intractable, without status epilepticus (principal); E03.9 Hypothyroidism, unspecified; F11.10 Opioid abuse, uncomplicated; F14.10 Cocaine abuse, uncomplicated
CPT/HCPCS: 36415; 80053; 82550; 84100; 85025; 93005; 93010; 96374; 96375; 99281-25; J0131

== ENCOUNTER 2022-07-24 16:28 | Inpatient (IN) | payer OTHER ==
[2022-07-24 07:17] VITALS: BMI 27.7
[~2022-07-24 16:28] MED LIST: LORazepam 2 MG TABLET PO STA
[2022-07-24] MEDS ORDERED: BISMUTH SUBSALICYLATE 524 MG/30 ML PO PRN (18:49)
[2022-07-24] MEDS ORDERED: ACETAMINOPHEN 325 MG TABLET (FP) PO PRN (18:49)
[2022-07-24] MEDS ORDERED: BENZOCAINE/MENTHOL (CHLORASEPTIC ) LOZENGE MM PRN (18:49)
[2022-07-24] MEDS ORDERED: NICOTINE POLACRILEX 2 MG GUM BUC PRN (19:59)
[2022-07-24] MEDS ORDERED: DICYCLOMINE HCL 10 MG CAPSULE PO PRN (19:59)
[2022-07-24] MEDS ORDERED: NICOTINE 10 MG CARTRIDGE (INHALER) IH PRN (19:59)
[2022-07-24] MEDS ORDERED: POLYETHYLENE GLYCOL (HEALTHYLAX) 3350 17 GM PACKET PO PRN (19:59)
[2022-07-24] MEDS ORDERED: IBUPROFEN 400 MG TABLET (FP) PO PRN (19:59)
[2022-07-24] MEDS ORDERED: LOPERAMIDE HCL 2 MG CAPSULE PO PRN (19:59)
[2022-07-24] MEDS ORDERED: ONDANSETRON *ODT* 4 MG TABLET SL PRN (19:59)
[2022-07-24] MEDS ORDERED: MAG HYDROX/AL HYDROX/SIMETH 30 ML UNIT-DOSE CUP PO PRN (19:59)
[2022-07-24] MEDS: METHOCARBAMOL 500 MG TABLET PO PRN (22:16)
[2022-07-24] MEDS: MELATONIN 5 MG TABLETS PO SCH (22:16)
[2022-07-24] MEDS: THIAMINE HCL 100 MG TABLET (FP) PO SCH (22:16)
[2022-07-24] MEDS: chlordiazePOXIDE HCL 25 MG CAPSULE PO SCH (22:23)
[2022-07-24] MEDS: hydrOXYzine PAMOATE 25 MG CAPSULE (FP) PO PRN (22:24)
[2022-07-25] MEDS: chlordiazePOXIDE HCL 25 MG CAPSULE PO SCH ×4 (06:16→22:14)
[2022-07-25] MEDS ORDERED: NAPROXEN SODIUM 220 MG PO SCH (10:00)
[2022-07-25] MEDS: PRENATAL VITAMINS W/ FOLIC ACID TABLET (FP) PO SCH (10:19)
[2022-07-25] MEDS: METHOCARBAMOL 500 MG TABLET PO PRN (10:20)
[2022-07-25] MEDS: levETIRAcetam 500 MG TABLET (FP) PO SCH ×2 (10:20→22:13)
[2022-07-25] MEDS ORDERED: methaDONE HCL 10 MG TABLET (FOR DETOX USE ONLY) PO ONE (10:34)
[2022-07-25] MEDS ORDERED: cloNIDine HCL 0.1 MG TABLET PO PRN (10:34)
[2022-07-25] MEDS: IBUPROFEN 600 MG TABLET (FP) PO PRN (21:24)
[2022-07-25] MEDS: THIAMINE HCL 100 MG TABLET (FP) PO SCH (22:13)
[2022-07-25] MEDS: MELATONIN 5 MG TABLETS PO SCH (22:14)
[2022-07-26] MEDS: ACETAMINOPHEN 325 MG TABLET (FP) PO PRN (02:00)
[2022-07-26] MEDS: chlordiazePOXIDE HCL 25 MG CAPSULE PO SCH ×4 (05:25→22:22)
[2022-07-26] MEDS: levETIRAcetam 500 MG TABLET (FP) PO SCH ×2 (10:26→22:22)
[2022-07-26] MEDS: METHOCARBAMOL 500 MG TABLET PO PRN ×2 (10:26→18:22)
[2022-07-26] MEDS: MAGNESIUM HYDROX 2400MG/30ML ORAL SUSPENSION 30 ML CUP PO PRN (10:26)
[2022-07-26] MEDS: PRENATAL VITAMINS W/ FOLIC ACID TABLET (FP) PO SCH (10:26)
[2022-07-26] MEDS: IBUPROFEN 600 MG TABLET (FP) PO PRN (11:17)
[2022-07-26] MEDS: hydrOXYzine PAMOATE 25 MG CAPSULE (FP) PO PRN (18:22)
[2022-07-26] MEDS: MELATONIN 5 MG TABLETS PO SCH (22:21)
[2022-07-26] MEDS: THIAMINE HCL 100 MG TABLET (FP) PO SCH (22:22)
[2022-07-27] MEDS: METHOCARBAMOL 500 MG TABLET PO PRN ×2 (05:03→17:12)
[2022-07-27] MEDS: chlordiazePOXIDE HCL 10 MG CAPSULE PO SCH ×4 (05:03→22:36)
[2022-07-27] MEDS: IBUPROFEN 600 MG TABLET (FP) PO PRN ×2 (05:04→18:47)
[2022-07-27] MEDS ORDERED: methaDONE HCL 10 MG TABLET (FOR DETOX USE ONLY) PO ONE (10:00)
[2022-07-27] MEDS: PRENATAL VITAMINS W/ FOLIC ACID TABLET (FP) PO SCH (10:17)
[2022-07-27] MEDS: levETIRAcetam 500 MG TABLET (FP) PO SCH ×2 (10:18→22:36)
[2022-07-27] MEDS: ACETAMINOPHEN 325 MG TABLET (FP) PO PRN ×2 (10:19→22:38)
[2022-07-27] MEDS: SULFAMETHOXAZOLE/TRIMETHOPRIM 800MG/160MG D.S. TABLET PO SCH ×2 (12:13→22:36)
[2022-07-27 16:23] LABS: EPI CELLS 36 /uL (0-25.1); HYALINE CASTS 0 /uL (0-3.1); PH,URINE 6.5 (5.0-8.0); URINE APPEARANCE CLEAR; URINE BACTERIA 6225 /uL (0-1359); URINE BILIRUBIN NEGATIVE (NEGATIVE); URINE COLOR YELLOW; URINE GLUCOSE (UA) NEGATIVE (NEGATIVE); URINE KETONE NEGATIVE (NEGATIVE); URINE LEUK ESTERASE TRACE (NEGATIVE); URINE NITRITE NEGATIVE (NEGATIVE); URINE PROTEIN NEGATIVE (NEGATIVE); URINE RBC 17 /uL (0-23.9); URINE UROBILINOGEN 0.2 mg/dL (0.2-1.0); URINE WBC 28 /uL (0-25.8)
[2022-07-27] MEDS: MAGNESIUM HYDROX 2400MG/30ML ORAL SUSPENSION 30 ML CUP PO PRN (17:13)
[2022-07-27] MEDS ORDERED: BENZOCAINE 20 % GEL TUBE MM PRN (20:50)
[2022-07-27] MEDS: THIAMINE HCL 100 MG TABLET (FP) PO SCH (22:36)
[2022-07-27] MEDS: MELATONIN 5 MG TABLETS PO SCH (22:36)
[2022-07-28] MEDS ORDERED: chlordiazePOXIDE HCL 10 MG CAPSULE PO SCH (05:00)
[2022-07-28] MEDS: PRENATAL VITAMINS W/ FOLIC ACID TABLET (FP) PO SCH (10:56)
[2022-07-28] MEDS: levETIRAcetam 500 MG TABLET (FP) PO SCH (10:56)
[2022-07-28] MEDS: SULFAMETHOXAZOLE/TRIMETHOPRIM 800MG/160MG D.S. TABLET PO SCH (10:56)
[2022-07-28 13:05] VITALS: BP 106/60; PULSE 83; RESP 17; TEMP 97.8
[2022-07-29] MEDS ORDERED: chlordiazePOXIDE HCL 10 MG CAPSULE PO ONE (05:00)
[2022-07-29] MEDS ORDERED: methaDONE HCL 10 MG TABLET (FOR DETOX USE ONLY) PO ONE (10:00)
== END 2022-07-28 15:52 | disposition left against medical advice (07) | DRG 770 ==
LOC: YASAS 16:28 → Y6N 18:09
PROVIDERS: ADMIT Allergy & Immunology; ATTEND Surgery
PROC: HZ2ZZZZ Detoxification Services for Substance Abuse Treatment (ICD-10-PCS; principal; 2022-07-24)
DX: F11.23 Opioid dependence with withdrawal (principal); F10.230 Alcohol dependence with withdrawal, uncomplicated; F14.20 Cocaine dependence, uncomplicated; F13.20 Sedative, hypnotic or anxiolytic dependence, uncomplicated; F17.210 Nicotine dependence, cigarettes, uncomplicated; F41.8 Other specified anxiety disorders; G40.909 Epilepsy, unspecified, not intractable, without status epilepticus; K59.00 Constipation, unspecified; N39.0 Urinary tract infection, site not specified; K08.89 Other specified disorders of teeth and supporting structures; Z28.310 Unvaccinated for COVID-19; Z28.21 Immunization not carried out because of patient refusal
CPT/HCPCS: 36415; 70450-TC; 72125-TC; 80053; 80177; 81003; 81025; 82140; 82962; 83735; 84703; 85025; 86780; 87086; 87186; 87811; 93005; 93010; 99283-25; C9803-CS; U0003; U0005

== ENCOUNTER 2022-08-29 08:32 | Inpatient (IN) | payer OTHER ==
[2022-08-29 09:06] VITALS: BMI 28.4
[2022-08-29] MEDS ORDERED: methaDONE HCL 10 MG TABLET (FOR DETOX USE ONLY) PO ONE ×2 (09:56→14:00)
[2022-08-29] MEDS ORDERED: cloNIDine HCL 0.1 MG TABLET PO PRN (09:56)
[2022-08-29] MEDS ORDERED: chlordiazePOXIDE HCL 25 MG CAPSULE PO PRN (09:58)
[2022-08-29] MEDS ORDERED: levETIRAcetam 500 MG TABLET (FP) PO ONE ×3 (10:20→11:00)
[2022-08-29] MEDS ORDERED: chlordiazePOXIDE HCL 25 MG CAPSULE ONE (10:22)
[2022-08-29] MEDS ORDERED: DICYCLOMINE HCL 10 MG CAPSULE PO PRN ×2 (11:14→12:51)
[2022-08-29 12:05] LABS: HEMATOCRIT 37.7 % (32.4-45.2); HEMOGLOBIN 12.1 GM/dL (10.7-15.3); MEAN CELL VOLUME 84.2 fl (80-96); MEAN PLT VOLUME 8.2 fl (7.5-11.1); PLATELET COUNT 297 10^3/uL (134-434); RBC 4.48 M/mm3 (3.60-5.2); RDW 16.4 % (11.6-15.6); WHITE BLOOD COUNT 5.9 K/mm3 (4.0-10.0)
[2022-08-29 12:12] LABS: BLOOD UREA NITROGEN 13.8 mg/dL (7-18); CALCIUM 9.1 mg/dL (8.5-10.1)
[2022-08-29 12:13] LABS: ALBUMIN 3.6 g/dl (3.4-5.0)
[2022-08-29 12:16] LABS: CREATININE 0.8 mg/dL (0.55-1.3)
[2022-08-29 12:18] LABS: BILIRUBIN,TOTAL 0.8 mg/dL (0.2-1); TOT PROT 7.5 g/dl (6.4-8.2)
[2022-08-29] MEDS ORDERED: IBUPROFEN 400 MG TABLET (FP) PO PRN (12:51)
[2022-08-29] MEDS ORDERED: ACETAMINOPHEN 325 MG TABLET (FP) PO PRN (12:51)
[2022-08-29] MEDS ORDERED: hydrOXYzine PAMOATE 25 MG CAPSULE (FP) PO PRN (12:51)
[2022-08-29] MEDS ORDERED: NALOXONE HCL (KLOXXADO) 8 MG SPRAY NS PRN (12:51)
[2022-08-29] MEDS ORDERED: MAG HYDROX/AL HYDROX/SIMETH 30 ML UNIT-DOSE CUP PO PRN (12:51)
[2022-08-29] MEDS ORDERED: BENZOCAINE/MENTHOL (CHLORASEPTIC ) LOZENGE MM PRN (12:51)
[2022-08-29] MEDS ORDERED: ONDANSETRON *ODT* 4 MG TABLET SL PRN (12:51)
[2022-08-29] MEDS ORDERED: MAGNESIUM HYDROX 2400MG/30ML ORAL SUSPENSION 30 ML CUP PO PRN (12:51)
[2022-08-29] MEDS ORDERED: METHOCARBAMOL 500 MG TABLET PO PRN (12:51)
[2022-08-29] MEDS ORDERED: POLYETHYLENE GLYCOL (HEALTHYLAX) 3350 17 GM PACKET PO PRN (12:51)
[2022-08-29] MEDS ORDERED: NICOTINE 10 MG CARTRIDGE (INHALER) IH PRN (12:51)
[2022-08-29] MEDS ORDERED: BISMUTH SUBSALICYLATE 524 MG/30 ML PO PRN (12:51)
[2022-08-29] MEDS ORDERED: LOPERAMIDE HCL 2 MG CAPSULE PO PRN (12:51)
[2022-08-29] MEDS: chlordiazePOXIDE HCL 25 MG CAPSULE PO SCH ×2 (18:31→22:31)
[2022-08-29] MEDS: levETIRAcetam 500 MG TABLET (FP) PO SCH (22:31)
[2022-08-29] MEDS: THIAMINE HCL 100 MG TABLET (FP) PO SCH (22:31)
[2022-08-29] MEDS: MELATONIN 5 MG TABLETS PO SCH (22:31)
[2022-08-30] MEDS: IBUPROFEN 600 MG TABLET (FP) PO PRN ×4 (01:55→22:41)
[2022-08-30] MEDS: chlordiazePOXIDE HCL 25 MG CAPSULE PO SCH ×4 (06:07→22:37)
[2022-08-30] MEDS: PRENATAL VITAMINS W/ FOLIC ACID TABLET (FP) PO SCH (10:02)
[2022-08-30] MEDS: levETIRAcetam 500 MG TABLET (FP) PO SCH ×2 (10:02→22:37)
[2022-08-30] MEDS ORDERED: LIDOCAINE VISCOUS 2% ORAL/TOP 15 ML UNIT-DOSE CUP MM PRN (10:03)
[2022-08-30] MEDS: ACETAMINOPHEN 325 MG TABLET (FP) PO PRN ×2 (13:13→18:13)
[2022-08-30 19:45] LABS: EPI CELLS >36 /uL (0-25.1); HYALINE CASTS 1 /uL (0-3.1); PH,URINE 6.5 (5.0-8.0); URINE APPEARANCE CLOUDY; URINE BACTERIA 8750 /uL (0-1359); URINE BILIRUBIN NEGATIVE (NEGATIVE); URINE COLOR YELLOW; URINE GLUCOSE (UA) NEGATIVE (NEGATIVE); URINE KETONE TRACE (NEGATIVE); URINE LEUK ESTERASE 1+ (NEGATIVE); URINE NITRITE POSITIVE (NEGATIVE); URINE PROTEIN NEGATIVE (NEGATIVE); URINE RBC 7 /uL (0-23.9); URINE WBC 41 /uL (0-25.8)
[2022-08-30] MEDS: MELATONIN 5 MG TABLETS PO SCH (22:36)
[2022-08-30] MEDS: THIAMINE HCL 100 MG TABLET (FP) PO SCH (22:36)
[2022-08-30] MEDS: BENZOCAINE 20 % GEL TUBE MM SCH (22:37)
[2022-08-30] MEDS: CHLORHEXIDINE GLUCONATE 0.12% 15ML CUP MM SCH (22:37)
[2022-08-31] MEDS: chlordiazePOXIDE HCL 25 MG CAPSULE PO SCH ×3 (05:34→17:31)
[2022-08-31] MEDS: BENZOCAINE 20 % GEL TUBE MM SCH ×2 (05:34→14:59)
[2022-08-31] MEDS ORDERED: methaDONE HCL 10 MG TABLET (FOR DETOX USE ONLY) PO ONE (10:00)
[2022-08-31] MEDS: PRENATAL VITAMINS W/ FOLIC ACID TABLET (FP) PO SCH (10:16)
[2022-08-31] MEDS: levETIRAcetam 500 MG TABLET (FP) PO SCH (10:16)
[2022-08-31] MEDS: CHLORHEXIDINE GLUCONATE 0.12% 15ML CUP MM SCH (10:16)
[2022-08-31] MEDS: IBUPROFEN 600 MG TABLET (FP) PO PRN (15:00)
[2022-08-31] MEDS ORDERED: SULFAMETHOXAZOLE/TRIMETHOPRIM 800MG/160MG D.S. TABLET PO SCH (22:00)
[2022-08-31 22:09] VITALS: BP 128/75; PULSE 87; RESP 18; TEMP 97.7
[2022-09-01] MEDS ORDERED: chlordiazePOXIDE HCL 10 MG CAPSULE PO PRN
[2022-09-01] MEDS ORDERED: chlordiazePOXIDE HCL 10 MG CAPSULE PO SCH (05:00)
[2022-09-02] MEDS ORDERED: chlordiazePOXIDE HCL 10 MG CAPSULE PO SCH (05:00)
[2022-09-02] MEDS ORDERED: methaDONE HCL 10 MG TABLET (FOR DETOX USE ONLY) PO ONE (10:00)
[2022-09-03] MEDS ORDERED: chlordiazePOXIDE HCL 10 MG CAPSULE PO ONE (05:00)
== END 2022-08-31 21:01 | disposition left against medical advice (07) | DRG 770 ==
LOC: YASAS 08:32 → Y6N 09:59
PROVIDERS: ADMIT Allergy & Immunology; ATTEND Surgery
PROC: HZ2ZZZZ Detoxification Services for Substance Abuse Treatment (ICD-10-PCS; principal; 2022-08-29)
DX: F11.23 Opioid dependence with withdrawal (principal); F10.230 Alcohol dependence with withdrawal, uncomplicated; F14.20 Cocaine dependence, uncomplicated; F13.20 Sedative, hypnotic or anxiolytic dependence, uncomplicated; F17.210 Nicotine dependence, cigarettes, uncomplicated; F41.8 Other specified anxiety disorders; F32.A Depression, unspecified; D64.9 Anemia, unspecified; G40.909 Epilepsy, unspecified, not intractable, without status epilepticus; N39.0 Urinary tract infection, site not specified; Z28.310 Unvaccinated for COVID-19; Z28.29 Immunization not carried out because of patient decision for other reason
CPT/HCPCS: 36415; 80053; 80177; 81003; 81025; 85027; 86780; 87811; C9803-CS; U0003; U0005

== ENCOUNTER 2022-11-07 04:51 | Inpatient (IN) | payer OTHER ==
[2022-11-07 06:53] VITALS: BMI 27.4
[2022-11-07] MEDS ORDERED: LOPERAMIDE HCL 2 MG CAPSULE PO PRN (08:03)
[2022-11-07] MEDS ORDERED: MAGNESIUM HYDROX 2400MG/30ML ORAL SUSPENSION 30 ML CUP PO PRN (08:03)
[2022-11-07] MEDS ORDERED: hydrOXYzine PAMOATE 25 MG CAPSULE (FP) PO PRN (08:03)
[2022-11-07] MEDS ORDERED: DICYCLOMINE HCL 10 MG CAPSULE PO PRN (08:03)
[2022-11-07] MEDS ORDERED: NALOXONE HCL (KLOXXADO) 8 MG SPRAY NS PRN (08:03)
[2022-11-07] MEDS ORDERED: BENZOCAINE/MENTHOL (CHLORASEPTIC ) LOZENGE MM PRN (08:03)
[2022-11-07] MEDS ORDERED: MAG HYDROX/AL HYDROX/SIMETH 30 ML UNIT-DOSE CUP PO PRN (08:03)
[2022-11-07] MEDS ORDERED: NALOXONE HCL 0.4 MG/ML VIAL IM PRN (08:03)
[2022-11-07] MEDS ORDERED: POLYETHYLENE GLYCOL (HEALTHYLAX) 3350 17 GM PACKET PO PRN (08:03)
[2022-11-07] MEDS ORDERED: BISMUTH SUBSALICYLATE 262 MG/15 ML BTL PO PRN (08:03)
[2022-11-07] MEDS ORDERED: BENZONATATE 200 MG CAPSULE PO PRN (08:03)
[2022-11-07] MEDS ORDERED: guaiFENesin 600 MG TABLET.ER (FP) PO PRN (08:03)
[2022-11-07] MEDS ORDERED: ONDANSETRON *ODT* 4 MG TABLET SL PRN (08:03)
[2022-11-07] MEDS ORDERED: IBUPROFEN 400 MG TABLET (FP) PO PRN (08:03)
[2022-11-07] MEDS ORDERED: methaDONE HCL 10 MG TABLET (FOR DETOX USE ONLY) PO ONE (08:11)
[2022-11-07] MEDS ORDERED: cloNIDine HCL 0.1 MG TABLET PO PRN (08:11)
[2022-11-07] MEDS ORDERED: BENZOCAINE 20 % GEL TUBE MM PRN (08:17)
[2022-11-07] MEDS ORDERED: methaDONE HCL 10 MG TABLET (FOR DETOX USE ONLY) ONE (10:09)
[2022-11-07] MEDS ORDERED: levETIRAcetam 500 MG TABLET (FP) PO ONE (10:09)
[2022-11-07] MEDS: PRENATAL VITAMINS W/ FOLIC ACID TABLET (FP) PO SCH (10:15)
[2022-11-07] MEDS: levETIRAcetam 500 MG TABLET (FP) PO SCH ×2 (10:15→22:54)
[2022-11-07 10:39] LABS: HEMATOCRIT 37.5 % (32.4-45.2); HEMOGLOBIN 12.1 GM/dL (10.7-15.3); MCH 26.9 pg (25.7-33.7); MCHC 32.3 g/dl (32.0-36.0); MEAN CELL VOLUME 83.2 fl (80-96); MEAN PLT VOLUME 7.5 fl (7.5-11.1); PLATELET COUNT 310 10^3/uL (134-434); RBC 4.51 M/mm3 (3.60-5.2); RDW 15.7 % (11.6-15.6); WHITE BLOOD COUNT 4.8 K/mm3 (4.0-10.0)
[2022-11-07 11:36] LABS: ALBUMIN 3.4 g/dl (3.4-5.0); CALCIUM 9.1 mg/dL (8.5-10.1)
[2022-11-07 11:37] LABS: BLOOD UREA NITROGEN 12.5 mg/dL (7-18)
[2022-11-07 11:40] LABS: CREATININE 0.6 mg/dL (0.55-1.3)
[2022-11-07 11:42] LABS: BILIRUBIN,TOTAL 0.4 mg/dL (0.2-1)
[2022-11-07] MEDS: MELATONIN 5 MG TABLETS PO SCH (22:45)
[2022-11-07] MEDS: THIAMINE HCL 100 MG TABLET (FP) PO SCH (22:45)
[2022-11-08] MEDS: levETIRAcetam 500 MG TABLET (FP) PO SCH ×2 (10:20→22:21)
[2022-11-08] MEDS: PRENATAL VITAMINS W/ FOLIC ACID TABLET (FP) PO SCH (10:20)
[2022-11-08] MEDS: IBUPROFEN 600 MG TABLET (FP) PO PRN (10:21)
[2022-11-08 14:07] LABS: HIV INTERPRETATION NEGATIVE (NEGATIVE)
[2022-11-08] MEDS: diazePAM 5 MG TABLET PO PRN (22:21)
[2022-11-08] MEDS: THIAMINE HCL 100 MG TABLET (FP) PO SCH (22:21)
[2022-11-08] MEDS: MELATONIN 5 MG TABLETS PO SCH (22:21)
[2022-11-08] MEDS: ACETAMINOPHEN 325 MG TABLET (FP) PO PRN (22:22)
[2022-11-09] MEDS ORDERED: methaDONE HCL 10 MG TABLET (FOR DETOX USE ONLY) PO ONE (10:00)
[2022-11-09] MEDS: PRENATAL VITAMINS W/ FOLIC ACID TABLET (FP) PO SCH (10:24)
[2022-11-09] MEDS: levETIRAcetam 500 MG TABLET (FP) PO SCH ×2 (10:25→22:24)
[2022-11-09] MEDS: ACETAMINOPHEN 325 MG TABLET (FP) PO PRN ×2 (10:25→22:24)
[2022-11-09] MEDS: NICOTINE 10 MG CARTRIDGE (INHALER) IH PRN (18:46)
[2022-11-09] MEDS: diazePAM 5 MG TABLET PO PRN (22:23)
[2022-11-09] MEDS: MELATONIN 5 MG TABLETS PO SCH (22:24)
[2022-11-09] MEDS: THIAMINE HCL 100 MG TABLET (FP) PO SCH (22:24)
[2022-11-10] MEDS: PRENATAL VITAMINS W/ FOLIC ACID TABLET (FP) PO SCH (10:41)
[2022-11-10] MEDS: levETIRAcetam 500 MG TABLET (FP) PO SCH ×2 (10:41→22:32)
[2022-11-10] MEDS: IBUPROFEN 600 MG TABLET (FP) PO PRN ×2 (10:46→22:35)
[2022-11-10] MEDS ORDERED: MELATONIN 5 MG TABLETS PO PRN (12:41)
[2022-11-10] MEDS: diazePAM 5 MG TABLET PO PRN (22:32)
[2022-11-10] MEDS: THIAMINE HCL 100 MG TABLET (FP) PO SCH (22:32)
[2022-11-11] MEDS: IBUPROFEN 600 MG TABLET (FP) PO PRN ×2 (05:32→14:43)
[2022-11-11] MEDS: ACETAMINOPHEN 325 MG TABLET (FP) PO PRN (08:42)
[2022-11-11] MEDS ORDERED: methaDONE HCL 10 MG TABLET (FOR DETOX USE ONLY) PO ONE (10:00)
[2022-11-11] MEDS: levETIRAcetam 500 MG TABLET (FP) PO SCH (10:02)
[2022-11-11] MEDS: PRENATAL VITAMINS W/ FOLIC ACID TABLET (FP) PO SCH (10:02)
[2022-11-11] MEDS: NICOTINE 10 MG CARTRIDGE (INHALER) IH PRN (10:12)
[2022-11-11] MEDS: diazePAM 5 MG TABLET PO PRN (10:42)
[2022-11-11 21:00] VITALS: BP 120/68; PULSE 82
[2022-11-11 21:55] VITALS: RESP 16; TEMP 98
== END 2022-11-11 20:55 | disposition left against medical advice (07) | DRG 770 ==
LOC: YASAS 04:51 → Y6N 09:39
PROVIDERS: ADMIT Allergy & Immunology; ATTEND Surgery
PROC: HZ2ZZZZ Detoxification Services for Substance Abuse Treatment (ICD-10-PCS; principal; 2022-11-07)
DX: F11.23 Opioid dependence with withdrawal (principal); F10.20 Alcohol dependence, uncomplicated; F14.20 Cocaine dependence, uncomplicated; F17.210 Nicotine dependence, cigarettes, uncomplicated; F41.8 Other specified anxiety disorders; R56.9 Unspecified convulsions; Z28.310 Unvaccinated for COVID-19; Z28.29 Immunization not carried out because of patient decision for other reason
CPT/HCPCS: 36415; 80053; 80177; 81025; 82140; 85027; 86780; 87389; 87811; C9803-CS; U0003; U0005

== ENCOUNTER 2022-12-16 16:39 | Inpatient (IN) | payer OTHER ==
[2022-12-16] MEDS ORDERED: levETIRAcetam 500 MG/5 ML INJECTION VIAL IVPB ONE ×2 (17:01→17:03)
[2022-12-16 17:42] LABS: VENOUS BASE EXCESS 0.1 mmol/L (-2-2); VENOUS O2 SATURATION 71.1 % (70-80); VENOUS PCO2 37.9 mmHg (38-52); VENOUS PH 7.423 (7.310-7.410)
[2022-12-16 17:45] LABS: BASO % 0.4 % (0-2.0); EOS % 0.1 % (0-4.5); HEMATOCRIT 43.8 % (32.4-45.2); HEMOGLOBIN 14.7 GM/dL (10.7-15.3); LYMPH % 15.3 % (8-40); MCH 28.3 pg (25.7-33.7); MCHC 33.6 g/dl (32.0-36.0); MEAN CELL VOLUME 84.1 fl (80-96); MEAN PLT VOLUME 9.2 fl (7.5-11.1); MONO % 7.8 % (3.8-10.2); NEUT % 76.4 % (42.8-82.8); PLATELET COUNT 264 10^3/uL (134-434); RBC 5.21 M/mm3 (3.60-5.2); WHITE BLOOD COUNT 12.1 K/mm3 (4.0-10.0)
[2022-12-16 17:50] VITALS: BMI 29.0
[2022-12-16 18:08] LABS: CHLORIDE 104 mmol/L (98-107); POTASSIUM 3.1 mmol/L (3.5-5.1); SODIUM 141 mmol/L (136-145)
[2022-12-16 18:10] LABS: CALCIUM 9.3 mg/dL (8.5-10.1)
[2022-12-16 18:11] LABS: ALBUMIN 3.7 g/dl (3.4-5.0); ANION GAP 8 MMOL/L (8-16); BLOOD UREA NITROGEN 21.4 mg/dL (7-18); CO2 29 mmol/L (21-32); GLUCOSE,RANDOM 92 mg/dL (74-106)
[2022-12-16 18:14] LABS: CREATININE 0.9 mg/dL (0.55-1.3); SGOT/AST 112 U/L (15-37); SGPT/ALT 51 U/L (13-61)
[2022-12-16 18:16] LABS: BILIRUBIN,TOTAL 2.8 mg/dL (0.2-1); TOT PROT 7.8 g/dl (6.4-8.2)
[2022-12-16 18:17] LABS: ALK PHOS 89 U/L (45-117)
[2022-12-16] MEDS ORDERED: ASPIRIN 81 MG CHEWABLE TABLETS PO ONE (19:14)
[2022-12-16] MEDS ORDERED: POTASSIUM CHLORIDE ORAL LIQUID 20 MEQ/15 ML PO ONE (19:21)
[2022-12-16] MEDS ORDERED: ASPIRIN 81 MG CHEWABLE TABLETS ONE (19:42)
[2022-12-16] MEDS ORDERED: POTASSIUM CHLORIDE TABS 20 MEQ TABLET.ER (FP) PO ONE (19:43)
[2022-12-16] MEDS ORDERED: MAGNESIUM SULF 50% (8.12 MEQ/2 ML-1 GM VIAL) IVPB ONE (19:50)
[2022-12-16 19:54] LABS: ACTIVATED PTT 37.4 SECONDS (25.2-36.5); INR 1.16 (0.83-1.09); PROTHROMBIN TIME (PATIENT) 13.4 SEC (9.7-13.0)
[2022-12-16] MEDS ORDERED: MAGNESIUM SULFATE IN WATER 2 GM/50 ML IVPB IVPB ONE (20:09)
[2022-12-16 22:11] LABS: MAGNESIUM 2.1 mg/dL (1.8-2.4)
[2022-12-17] MEDS ORDERED: NALOXONE HCL 0.4 MG/ML VIAL IVPUSH ONE (00:43)
[2022-12-17] MEDS ORDERED: NALOXONE HCL 0.4 MG/ML VIAL ONE (01:28)
[2022-12-17] MEDS ORDERED: HEPARIN NA (PORCINE) 5,000 UNITS/ML 1ML VIAL IVPUSH PRN ×2 (03:25)
[2022-12-17] MEDS ORDERED: SODIUM CHLORIDE 1,000 ML IV SCH (04:15)
[2022-12-17] MEDS: HEPARIN INFUSION - 25,000 UNITS/500 ML INFUS.BAG IVPB SCH ×3 (04:28→16:50)
[2022-12-17] MEDS: SODIUM CHLORIDE 1,000 ML IV SCH ×2 (07:58→17:56)
[2022-12-17 09:00] LABS: POTASSIUM 3.3 mmol/L (3.5-5.1)
[2022-12-17 09:02] LABS: ALBUMIN 3.4 g/dl (3.4-5.0); BLOOD UREA NITROGEN 17.8 mg/dL (7-18); CALCIUM 8.9 mg/dL (8.5-10.1); MAGNESIUM 2.2 mg/dL (1.8-2.4)
[2022-12-17] MEDS: levETIRAcetam 500 MG/5 ML INJECTION VIAL IVPB SCH ×2 (09:07→21:23)
[2022-12-17] MEDS: ASPIRIN COATED 81 MG TABLET.EC PO SCH (09:07)
[2022-12-17] MEDS ORDERED: POTASSIUM CHLORIDE ORAL LIQUID 20 MEQ/15 ML PO ONE (09:11)
[2022-12-17 09:12] LABS: CREATININE 0.6 mg/dL (0.55-1.3); PHOSPHOROUS 2.5 mg/dL (2.5-4.9)
[2022-12-17] MEDS ORDERED: ENOXAPARIN NA (PORCINE) 40 MG/0.4 ML DISP.SYRIN SQ SCH (10:00)
[2022-12-17 11:58] LABS: EPI CELLS 35 /uL (0-25.1); HYALINE CASTS 153 /uL (0-3.1); URINE APPEARANCE CLOUDY; URINE BACTERIA >9,000 /uL (0-1359); URINE BILIRUBIN 1+ (NEGATIVE); URINE COLOR DK YELLOW; URINE GLUCOSE (UA) NEGATIVE (NEGATIVE); URINE KETONE 3+ (NEGATIVE); URINE LEUK ESTERASE 2+ (NEGATIVE); URINE NITRITE NEGATIVE (NEGATIVE); URINE PROTEIN 1+ (NEGATIVE); URINE WBC 711 /uL (0-25.8)
[2022-12-17 12:09] LABS: PHENCYCLIDINE,URINE NEGATIVE (NEGATIVE)
[2022-12-17 12:10] LABS: URINE AMPHETAMINES NEGATIVE (NEGATIVE); URINE BARBITURATES NEGATIVE (NEGATIVE); URINE BENZODIAZEPINES NEGATIVE (NEGATIVE)
[2022-12-17 12:15] LABS: COCAINE, UR POSITIVE (NEGATIVE); METHADONE, UR NEGATIVE (NEGATIVE); OPIATES, URI POSITIVE (NEGATIVE)
[2022-12-17] MEDS: ATORVASTATIN CA 40 MG TABLET (FP) PO SCH (21:23)
[2022-12-18] MEDS ORDERED: cloNIDine HCL 0.1 MG TABLET PO PRN (07:20)
[2022-12-18 08:35] LABS: BASO % 1.1 % (0-2.0); EOS % 2.7 % (0-4.5); HEMATOCRIT 35.1 % (32.4-45.2); HEMOGLOBIN 11.9 GM/dL (10.7-15.3); LYMPH % 24.9 % (8-40); MCH 28.7 pg (25.7-33.7); MEAN CELL VOLUME 84.3 fl (80-96); MEAN PLT VOLUME 8.8 fl (7.5-11.1); MONO % 6.6 % (3.8-10.2); NEUT % 64.7 % (42.8-82.8); PLATELET COUNT 210 10^3/uL (134-434); RBC 4.17 M/mm3 (3.60-5.2); RDW 15.7 % (11.6-15.6); WHITE BLOOD COUNT 6.8 K/mm3 (4.0-10.0)
[2022-12-18 08:50] LABS: POTASSIUM 3.7 mmol/L (3.5-5.1)
[2022-12-18 08:55] LABS: BLOOD UREA NITROGEN 14.1 mg/dL (7-18); CALCIUM 8.1 mg/dL (8.5-10.1)
[2022-12-18 08:56] LABS: MAGNESIUM 1.7 mg/dL (1.8-2.4)
[2022-12-18] MEDS: HEPARIN INFUSION - 25,000 UNITS/500 ML INFUS.BAG IVPB SCH (08:57)
[2022-12-18 08:59] LABS: BILIRUBIN,TOTAL 1.1 mg/dL (0.2-1); CREATININE 0.6 mg/dL (0.55-1.3); PHOSPHOROUS 3.1 mg/dL (2.5-4.9)
[2022-12-18 09:00] LABS: TOT PROT 5.6 g/dl (6.4-8.2)
[2022-12-18 09:01] LABS: ALBUMIN 2.5 g/dl (3.4-5.0)
[2022-12-18] MEDS: ASPIRIN COATED 81 MG TABLET.EC PO SCH (09:09)
[2022-12-18] MEDS: levETIRAcetam 500 MG/5 ML INJECTION VIAL IVPB SCH ×2 (09:09→21:53)
[2022-12-18] MEDS: POLYETHYLENE GLYCOL (HEALTHYLAX) 3350 17 GM PACKET PO SCH ×2 (09:34→21:53)
[2022-12-18] MEDS ORDERED: methaDONE HCL 10 MG TABLET PO ONE (10:00)
[2022-12-18] MEDS ORDERED: LACTATED RINGERS SOLUTION 1,000 ML/1,000 ML INFUS.BAG IV SCH (11:30)
[2022-12-18] MEDS: ATORVASTATIN CA 40 MG TABLET (FP) PO SCH (21:53)
[2022-12-19] MEDS: HEPARIN INFUSION - 25,000 UNITS/500 ML INFUS.BAG IVPB SCH (03:06)
[2022-12-19 07:44] LABS: BASO % 0.9 % (0-2.0); EOS % 3.7 % (0-4.5); HEMATOCRIT 34.1 % (32.4-45.2); HEMOGLOBIN 11.4 GM/dL (10.7-15.3); LYMPH % 25.8 % (8-40); MCH 28.5 pg (25.7-33.7); MCHC 33.4 g/dl (32.0-36.0); MEAN CELL VOLUME 85.3 fl (80-96); MEAN PLT VOLUME 8.7 fl (7.5-11.1); MONO % 8.7 % (3.8-10.2); NEUT % 60.9 % (42.8-82.8); PLATELET COUNT 192 10^3/uL (134-434); RBC 3.99 M/mm3 (3.60-5.2); RDW 15.5 % (11.6-15.6); WHITE BLOOD COUNT 5.6 K/mm3 (4.0-10.0)
[2022-12-19 08:01] LABS: POTASSIUM 3.6 mmol/L (3.5-5.1)
[2022-12-19 08:12] LABS: CALCIUM 8.2 mg/dL (8.5-10.1)
[2022-12-19 08:13] LABS: ALBUMIN 2.5 g/dl (3.4-5.0); BLOOD UREA NITROGEN 12.1 mg/dL (7-18); MAGNESIUM 1.4 mg/dL (1.8-2.4)
[2022-12-19 08:15] LABS: CREATININE 0.5 mg/dL (0.55-1.3)
[2022-12-19 08:17] LABS: BILIRUBIN,TOTAL 0.6 mg/dL (0.2-1); TOT PROT 5.3 g/dl (6.4-8.2)
[2022-12-19] MEDS ORDERED: MAGNESIUM SULF 50% (8.12 MEQ/2 ML-1 GM VIAL) IVPB ONE (09:03)
[2022-12-19] MEDS: ASPIRIN COATED 81 MG TABLET.EC PO SCH (10:08)
[2022-12-19] MEDS: POLYETHYLENE GLYCOL (HEALTHYLAX) 3350 17 GM PACKET PO SCH ×2 (10:08→21:16)
[2022-12-19] MEDS: levETIRAcetam 500 MG/5 ML INJECTION VIAL IVPB SCH (11:47)
[2022-12-19] MEDS: CEFTRIAXONE 1 GM in DEXTROSE 5%-WATER - 50 ML IVPB SCH (13:08)
[2022-12-19] MEDS ORDERED: MAGNESIUM SULFATE IN WATER 2 GM/50 ML IVPB IVPB ONE (13:35)
[2022-12-19 14:00] LABS: EPI CELLS >36 /uL (0-25.1); HYALINE CASTS 0 /uL (0-3.1); PH,URINE 6.5 (5.0-8.0); URINE APPEARANCE CLEAR; URINE BACTERIA 3069 /uL (0-1359); URINE BILIRUBIN NEGATIVE (NEGATIVE); URINE COLOR YELLOW; URINE GLUCOSE (UA) NEGATIVE (NEGATIVE); URINE KETONE NEGATIVE (NEGATIVE); URINE LEUK ESTERASE 2+ (NEGATIVE); URINE NITRITE NEGATIVE (NEGATIVE); URINE PROTEIN NEGATIVE (NEGATIVE); URINE RBC 5 /uL (0-23.9); URINE UROBILINOGEN 0.2 mg/dL (0.2-1.0); URINE WBC 44 /uL (0-25.8)
[2022-12-19 20:20] LABS: N-TERMINAL BNP 1870.5 pg/ml (5-125)
[2022-12-19] MEDS: levETIRAcetam 500 MG TABLET (FP) PO SCH (21:17)
[2022-12-19] MEDS: SENNOSIDES/DOCUSATE COMBO (SENNA PLUS) TABLET (UD) PO SCH (21:17)
[2022-12-19] MEDS: ATORVASTATIN CA 40 MG TABLET (FP) PO SCH (21:20)
[2022-12-20] MEDS: HEPARIN INFUSION - 25,000 UNITS/500 ML INFUS.BAG IVPB SCH (06:37)
[2022-12-20 07:38] LABS: BASO % 0.9 % (0-2.0); EOS % 3.9 % (0-4.5); HEMATOCRIT 32.6 % (32.4-45.2); HEMOGLOBIN 10.9 GM/dL (10.7-15.3); MCH 28.4 pg (25.7-33.7); MCHC 33.4 g/dl (32.0-36.0); MEAN PLT VOLUME 8.9 fl (7.5-11.1); MONO % 9.2 % (3.8-10.2); PLATELET COUNT 189 10^3/uL (134-434); RBC 3.83 M/mm3 (3.60-5.2); RDW 15.8 % (11.6-15.6); WHITE BLOOD COUNT 6.6 K/mm3 (4.0-10.0)
[2022-12-20 07:58] LABS: POTASSIUM 3.9 mmol/L (3.5-5.1)
[2022-12-20 08:02] LABS: ALBUMIN 2.5 g/dl (3.4-5.0); BLOOD UREA NITROGEN 14.3 mg/dL (7-18)
[2022-12-20 08:03] LABS: CALCIUM 8.4 mg/dL (8.5-10.1); MAGNESIUM 1.9 mg/dL (1.8-2.4)
[2022-12-20 08:07] LABS: BILIRUBIN,TOTAL 0.3 mg/dL (0.2-1); CREATININE 0.6 mg/dL (0.55-1.3); PHOSPHOROUS 3.5 mg/dL (2.5-4.9); TOT PROT 5.4 g/dl (6.4-8.2)
[2022-12-20] MEDS ORDERED: LACTATED RINGERS SOLUTION 1,000 ML/1,000 ML INFUS.BAG IV SCH (08:30)
[2022-12-20] MEDS ORDERED: methaDONE HCL 10 MG TABLET PO ONE (10:00)
[2022-12-20] MEDS: CEFTRIAXONE 1 GM in DEXTROSE 5%-WATER - 50 ML IVPB SCH (10:12)
[2022-12-20] MEDS: levETIRAcetam 500 MG TABLET (FP) PO SCH ×2 (10:12→21:17)
[2022-12-20] MEDS: POLYETHYLENE GLYCOL (HEALTHYLAX) 3350 17 GM PACKET PO SCH ×2 (10:12→21:18)
[2022-12-20] MEDS: ASPIRIN COATED 81 MG TABLET.EC PO SCH (10:13)
[2022-12-20] MEDS: ENOXAPARIN NA (PORCINE) 40 MG/0.4 ML DISP.SYRIN SQ SCH (21:17)
[2022-12-20] MEDS: ATORVASTATIN CA 40 MG TABLET (FP) PO SCH (21:17)
[2022-12-20] MEDS: SENNOSIDES/DOCUSATE COMBO (SENNA PLUS) TABLET (UD) PO SCH (21:25)
[2022-12-21 06:51] LABS: BASO % 0.9 % (0-2.0); EOS % 3.7 % (0-4.5); HEMATOCRIT 33.9 % (32.4-45.2); HEMOGLOBIN 11.3 GM/dL (10.7-15.3); LYMPH % 22.5 % (8-40); MCH 28.6 pg (25.7-33.7); MCHC 33.5 g/dl (32.0-36.0); MEAN CELL VOLUME 85.4 fl (80-96); MEAN PLT VOLUME 8.8 fl (7.5-11.1); MONO % 11.8 % (3.8-10.2); NEUT % 61.1 % (42.8-82.8); PLATELET COUNT 213 10^3/uL (134-434); RBC 3.96 M/mm3 (3.60-5.2); RDW 15.7 % (11.6-15.6)
[2022-12-21 07:10] LABS: POTASSIUM 4.4 mmol/L (3.5-5.1)
[2022-12-21 07:11] LABS: CALCIUM 8.1 mg/dL (8.5-10.1)
[2022-12-21 07:12] LABS: BLOOD UREA NITROGEN 12.2 mg/dL (7-18); MAGNESIUM 1.6 mg/dL (1.8-2.4)
[2022-12-21 07:15] LABS: CREATININE 0.6 mg/dL (0.55-1.3)
[2022-12-21] MEDS ORDERED: MAGNESIUM SULF 50% (8.12 MEQ/2 ML-1 GM VIAL) IVPB ONE (07:45)
[2022-12-21] MEDS ORDERED: REGADENOSON 0.4 MG/5 ML PRE-FILLED SYRINGE IVPUSH ONE ×2 (08:59→09:45)
[2022-12-21] MEDS: levETIRAcetam 500 MG TABLET (FP) PO SCH ×2 (09:58→21:45)
[2022-12-21] MEDS: CEFTRIAXONE 1 GM in DEXTROSE 5%-WATER - 50 ML IVPB SCH (09:58)
[2022-12-21] MEDS: POLYETHYLENE GLYCOL (HEALTHYLAX) 3350 17 GM PACKET PO SCH ×3 (09:58→21:46)
[2022-12-21] MEDS: ASPIRIN COATED 81 MG TABLET.EC PO SCH (09:59)
[2022-12-21] MEDS: ENOXAPARIN NA (PORCINE) 40 MG/0.4 ML DISP.SYRIN SQ SCH (21:45)
[2022-12-21] MEDS: ATORVASTATIN CA 40 MG TABLET (FP) PO SCH (21:45)
[2022-12-21] MEDS: SENNOSIDES/DOCUSATE COMBO (SENNA PLUS) TABLET (UD) PO SCH (21:46)
[2022-12-22 06:26] LABS: HEMATOCRIT 35.7 % (32.4-45.2); HEMOGLOBIN 11.9 GM/dL (10.7-15.3); LYMPH % 26.5 % (8-40); MCH 28.7 pg (25.7-33.7); MCHC 33.4 g/dl (32.0-36.0); MEAN CELL VOLUME 85.7 fl (80-96); MEAN PLT VOLUME 8.2 fl (7.5-11.1); MONO % 13.5 % (3.8-10.2); PLATELET COUNT 249 10^3/uL (134-434); RBC 4.16 M/mm3 (3.60-5.2); RDW 16.3 % (11.6-15.6); WHITE BLOOD COUNT 5.5 K/mm3 (4.0-10.0)
[2022-12-22 06:42] LABS: POTASSIUM 4.3 mmol/L (3.5-5.1)
[2022-12-22 06:43] LABS: CALCIUM 8.6 mg/dL (8.5-10.1)
[2022-12-22 06:44] LABS: BLOOD UREA NITROGEN 11.6 mg/dL (7-18); MAGNESIUM 1.7 mg/dL (1.8-2.4)
[2022-12-22 06:47] LABS: CREATININE 0.6 mg/dL (0.55-1.3)
[2022-12-22] MEDS: levETIRAcetam 500 MG TABLET (FP) PO SCH ×2 (09:04→21:45)
[2022-12-22] MEDS: ASPIRIN COATED 81 MG TABLET.EC PO SCH (09:04)
[2022-12-22] MEDS: CEFTRIAXONE 1 GM in DEXTROSE 5%-WATER - 50 ML IVPB SCH (09:04)
[2022-12-22] MEDS: POLYETHYLENE GLYCOL (HEALTHYLAX) 3350 17 GM PACKET PO SCH ×2 (09:04→21:45)
[2022-12-22] MEDS: MULTIVITAMINS (DAILY MVI) TABLET (FP) PO SCH (10:33)
[2022-12-22] MEDS: ATORVASTATIN CA 40 MG TABLET (FP) PO SCH (21:44)
[2022-12-22] MEDS: ENOXAPARIN NA (PORCINE) 40 MG/0.4 ML DISP.SYRIN SQ SCH (21:45)
[2022-12-22] MEDS: SENNOSIDES/DOCUSATE COMBO (SENNA PLUS) TABLET (UD) PO SCH (21:46)
[2022-12-23 07:17] LABS: BASO % 1.3 % (0-2.0); EOS % 3.4 % (0-4.5); HEMOGLOBIN 12.6 GM/dL (10.7-15.3); LYMPH % 26.9 % (8-40); MCH 28.4 pg (25.7-33.7); MCHC 33.3 g/dl (32.0-36.0); MEAN CELL VOLUME 85.4 fl (80-96); MEAN PLT VOLUME 8.4 fl (7.5-11.1); MONO % 11.6 % (3.8-10.2); NEUT % 56.8 % (42.8-82.8); PLATELET COUNT 312 10^3/uL (134-434); RBC 4.45 M/mm3 (3.60-5.2); RDW 15.7 % (11.6-15.6); WHITE BLOOD COUNT 5.9 K/mm3 (4.0-10.0)
[2022-12-23 07:35] LABS: CALCIUM 9.1 mg/dL (8.5-10.1)
[2022-12-23 07:36] LABS: BLOOD UREA NITROGEN 15.4 mg/dL (7-18)
[2022-12-23 07:39] LABS: CREATININE 0.7 mg/dL (0.55-1.3); PHOSPHOROUS 4.6 mg/dL (2.5-4.9)
[2022-12-23 07:40] LABS: BILIRUBIN,TOTAL 0.4 mg/dL (0.2-1)
[2022-12-23 07:41] LABS: TOT PROT 7.1 g/dl (6.4-8.2)
[2022-12-23 07:51] LABS: ALBUMIN 3.1 g/dl (3.4-5.0)
[2022-12-23] MEDS: CEFTRIAXONE 1 GM in DEXTROSE 5%-WATER - 50 ML IVPB SCH (09:39)
[2022-12-23] MEDS: MULTIVITAMINS (DAILY MVI) TABLET (FP) PO SCH (09:39)
[2022-12-23] MEDS: ASPIRIN COATED 81 MG TABLET.EC PO SCH (09:40)
[2022-12-23] MEDS: levETIRAcetam 500 MG TABLET (FP) PO SCH ×2 (09:40→21:30)
[2022-12-23] MEDS: POLYETHYLENE GLYCOL (HEALTHYLAX) 3350 17 GM PACKET PO SCH ×3 (09:40→21:37)
[2022-12-23] MEDS: ACETAMINOPHEN 325 MG TABLET (FP) PO PRN (11:16)
[2022-12-23] MEDS: LIDOCAINE 5% TOPICAL PATCH TP SCH (11:17)
[2022-12-23] MEDS: ATORVASTATIN CA 40 MG TABLET (FP) PO SCH (21:30)
[2022-12-23] MEDS: ENOXAPARIN NA (PORCINE) 40 MG/0.4 ML DISP.SYRIN SQ SCH (21:30)
[2022-12-23] MEDS: SENNOSIDES/DOCUSATE COMBO (SENNA PLUS) TABLET (UD) PO SCH ×2 (21:30→21:36)
[2022-12-23] MEDS: LIDOCAINE PATCH REMOVAL MC SCH (21:31)
[2022-12-24] MEDS: MULTIVITAMINS (DAILY MVI) TABLET (FP) PO SCH (09:17)
[2022-12-24] MEDS: levETIRAcetam 500 MG TABLET (FP) PO SCH ×2 (09:17→21:13)
[2022-12-24] MEDS: ACETAMINOPHEN 325 MG TABLET (FP) PO PRN (09:17)
[2022-12-24] MEDS: ASPIRIN COATED 81 MG TABLET.EC PO SCH (09:17)
[2022-12-24] MEDS: CEFTRIAXONE 1 GM in DEXTROSE 5%-WATER - 50 ML IVPB SCH (09:18)
[2022-12-24] MEDS: LIDOCAINE 5% TOPICAL PATCH TP SCH (09:18)
[2022-12-24] MEDS: POLYETHYLENE GLYCOL (HEALTHYLAX) 3350 17 GM PACKET PO SCH ×2 (09:19→21:13)
[2022-12-24] MEDS: LIDOCAINE PATCH REMOVAL MC SCH (21:14)
[2022-12-24] MEDS: ATORVASTATIN CA 40 MG TABLET (FP) PO SCH (21:14)
[2022-12-24] MEDS: ENOXAPARIN NA (PORCINE) 40 MG/0.4 ML DISP.SYRIN SQ SCH (21:14)
[2022-12-24] MEDS: SENNOSIDES/DOCUSATE COMBO (SENNA PLUS) TABLET (UD) PO SCH (21:14)
[2022-12-25] MEDS: LIDOCAINE 5% TOPICAL PATCH TP SCH (09:38)
[2022-12-25] MEDS: CEFTRIAXONE 1 GM in DEXTROSE 5%-WATER - 50 ML IVPB SCH (09:38)
[2022-12-25] MEDS: levETIRAcetam 500 MG TABLET (FP) PO SCH ×2 (09:38→21:03)
[2022-12-25] MEDS: POLYETHYLENE GLYCOL (HEALTHYLAX) 3350 17 GM PACKET PO SCH ×2 (09:38→21:04)
[2022-12-25] MEDS: ASPIRIN COATED 81 MG TABLET.EC PO SCH (09:39)
[2022-12-25] MEDS: MULTIVITAMINS (DAILY MVI) TABLET (FP) PO SCH (09:39)
[2022-12-25] MEDS: SENNOSIDES/DOCUSATE COMBO (SENNA PLUS) TABLET (UD) PO SCH (21:03)
[2022-12-25] MEDS: ATORVASTATIN CA 40 MG TABLET (FP) PO SCH (21:03)
[2022-12-25] MEDS: ENOXAPARIN NA (PORCINE) 40 MG/0.4 ML DISP.SYRIN SQ SCH (21:03)
[2022-12-25] MEDS: LIDOCAINE PATCH REMOVAL MC SCH (21:04)
[2022-12-26] MEDS: ASPIRIN COATED 81 MG TABLET.EC PO SCH (09:09)
[2022-12-26] MEDS: levETIRAcetam 500 MG TABLET (FP) PO SCH (09:09)
[2022-12-26] MEDS: MULTIVITAMINS (DAILY MVI) TABLET (FP) PO SCH (09:09)
[2022-12-26] MEDS: ACETAMINOPHEN 325 MG TABLET (FP) PO PRN (09:09)
[2022-12-26] MEDS: POLYETHYLENE GLYCOL (HEALTHYLAX) 3350 17 GM PACKET PO SCH (09:10)
[2022-12-26] MEDS: LIDOCAINE 5% TOPICAL PATCH TP SCH (09:12)
[2022-12-26 10:12] VITALS: BP 100/64; PULSE 82; RESP 18; TEMP 98.7
[2022-12-26] MEDS: NYSTATIN POWDER 100,000 UNITS/GM - 15 GM TOPICAL POWDER TP SCH ×2 (10:54→10:56)
== END 2022-12-26 15:49 | disposition other institution (70) | DRG 53 ==
LOC: JER 16:39 → JERBED 23:07 → J4S 12-17 02:32 → J6S 12-25 23:54
PROVIDERS: ADMIT Internal Medicine; ATTEND Internal Medicine
DX: G40.909 Epilepsy, unspecified, not intractable, without status epilepticus (principal); I21.4 Non-ST elevation (NSTEMI) myocardial infarction; F11.20 Opioid dependence, uncomplicated; F14.20 Cocaine dependence, uncomplicated; M62.82 Rhabdomyolysis; I95.89 Other hypotension; F10.20 Alcohol dependence, uncomplicated; F12.20 Cannabis dependence, uncomplicated; D72.829 Elevated white blood cell count, unspecified; N39.0 Urinary tract infection, site not specified; F39 Unspecified mood [affective] disorder; Z91.148 Patient's other noncompliance with medication regimen for other reason
CPT/HCPCS: 0241U-QW; 36415; 70450-TC; 71045-TC-FY; 72125-TC; 76705-TC; 78452-TC; 80048; 80053; 80061; 80177; 80307; 81003; 82533; 82550; 82553; 82803; 82962; 83036; 83605; 83735; 83880; 84100; 84443; 84484; 84703; 85025; 85610; 85730; 87040; 87086; 87186; 93005; 93010; 93017; 93306-TC; 97116-GP; 97161-GP; 99285-25; A9502; C9803-CS; J1644; J2785; U0003; U0005

== ENCOUNTER 2023-07-02 22:50 | Emergency (ER) | payer OTHER ==
[2023-07-02 23:11] VITALS: BP 118/77; PULSE 92; RESP 19; TEMP 98.3; BMI 25.8
[2023-07-03] MEDS ORDERED: ONDANSETRON *ODT* 4 MG TABLET SL ONE (02:11)
[2023-07-03 02:32] LABS: EPI CELLS >36 /uL (0-25.1); HCG,QUALITATIVE URINE Negative; HYALINE CASTS 2 /uL (0-3.1); PH,URINE 5.5 (5.0-8.0); URINE APPEARANCE TURBID; URINE BACTERIA 362 /uL (0-1359); URINE BILIRUBIN NEGATIVE (NEGATIVE); URINE COLOR YELLOW; URINE GLUCOSE (UA) NEGATIVE (NEGATIVE); URINE KETONE NEGATIVE (NEGATIVE); URINE LEUK ESTERASE 2+ (NEGATIVE); URINE NITRITE NEGATIVE (NEGATIVE); URINE PROTEIN TRACE (NEGATIVE); URINE WBC 1182 /uL (0-25.8)
[2023-07-03] MEDS ORDERED: ACETAMINOPHEN 325 MG TABLET (FP) PO ONE (03:44)
[2023-07-03] MEDS ORDERED: CEPHALEXIN MONOHYDRATE 500 MG CAPSULE (UD) PO ONE (03:44)
[2023-07-03] MEDS ORDERED: ACETAMINOPHEN 325 MG TABLET (FP) ONE ×2 (03:50→03:56)
[2023-07-03] MEDS ORDERED: CEPHALEXIN MONOHYDRATE 500 MG CAPSULE (UD) ONE (03:51)
[2023-07-03] MEDS ORDERED: MAG HYDROX/AL HYDROX/SIMETH 30 ML UNIT-DOSE CUP ONE (03:56)
[2023-07-03] MEDS ORDERED: FAMOTIDINE 20 MG TABLET ONE (03:56)
[2023-07-03 08:06] LABS: URINE CRYSTALS MODERATE /hpf; URINE RBC 30.1 /uL (0-23.9)
== END 2023-07-03 04:34 | disposition home or self-care (01) ==
LOC: JER 22:50
DX: R11.2 Nausea with vomiting, unspecified (principal); R19.7 Diarrhea, unspecified; R35.0 Frequency of micturition; N39.0 Urinary tract infection, site not specified; Z20.822 Contact with and (suspected) exposure to COVID-19
CPT/HCPCS: 0241U-QW; 81003; 84703; 87086; 99283-25

== ENCOUNTER 2023-07-03 09:02 | Inpatient (IN) | payer OTHER ==
[2023-07-03 09:35] VITALS: BMI 26.6
[2023-07-03] MEDS ORDERED: LORazepam 2 MG TABLET PO ONE (12:00)
[2023-07-03] MEDS ORDERED: LORazepam 1 MG TABLET PO ONE (12:00)
[2023-07-03] MEDS ORDERED: LORazepam 2 MG/ML SDV VIAL IM ONE ×2 (12:15)
[2023-07-03] MEDS ORDERED: IBUPROFEN 400 MG TABLET (FP) PO PRN (20:57)
[2023-07-03] MEDS ORDERED: ONDANSETRON *ODT* 4 MG TABLET SL PRN (20:57)
[2023-07-03] MEDS ORDERED: MAG HYDROX/AL HYDROX/SIMETH 30 ML UNIT-DOSE CUP PO PRN (20:57)
[2023-07-03] MEDS ORDERED: NALOXONE HCL 0.4 MG/ML VIAL IM PRN (20:57)
[2023-07-03] MEDS ORDERED: POLYETHYLENE GLYCOL (HEALTHYLAX) 3350 17 GM PACKET PO PRN (20:57)
[2023-07-03] MEDS ORDERED: BENZOCAINE/MENTHOL (CHLORASEPTIC ) LOZENGE MM PRN (20:57)
[2023-07-03] MEDS ORDERED: hydrOXYzine PAMOATE 25 MG CAPSULE (FP) PO PRN (20:57)
[2023-07-03] MEDS ORDERED: NALOXONE HCL (KLOXXADO) 8 MG SPRAY NS PRN (20:57)
[2023-07-03] MEDS ORDERED: chlordiazePOXIDE HCL 25 MG CAPSULE PO PRN (20:57)
[2023-07-03] MEDS ORDERED: BENZONATATE 200 MG CAPSULE PO PRN (20:57)
[2023-07-03] MEDS ORDERED: LOPERAMIDE HCL 2 MG CAPSULE PO PRN (20:57)
[2023-07-03] MEDS ORDERED: P-EPHED 60MG/TRIPROLIDI 2.5MG TABLET PO PRN (20:57)
[2023-07-03] MEDS ORDERED: MAGNESIUM HYDROX 2400MG/30ML ORAL SUSPENSION 30 ML CUP PO PRN (20:57)
[2023-07-03] MEDS ORDERED: ACETAMINOPHEN 325 MG TABLET (FP) PO PRN (20:57)
[2023-07-03] MEDS ORDERED: NICOTINE POLACRILEX 2 MG GUM BUC PRN (20:57)
[2023-07-03] MEDS ORDERED: DICYCLOMINE HCL 10 MG CAPSULE PO PRN (20:57)
[2023-07-03] MEDS ORDERED: BISMUTH SUBSALICYLATE 524 MG/30 ML PO PRN (20:57)
[2023-07-03] MEDS ORDERED: guaiFENesin 600 MG TABLET.ER (FP) PO PRN (20:57)
[2023-07-03] MEDS ORDERED: IBUPROFEN 600 MG TABLET (FP) PO PRN (20:57)
[2023-07-03] MEDS ORDERED: cloNIDine HCL 0.1 MG TABLET PO PRN (21:01)
[2023-07-03] MEDS ORDERED: methaDONE HCL 10 MG TABLET (FOR DETOX USE ONLY) PO ONE (23:00)
[2023-07-03] MEDS: THIAMINE HCL 100 MG TABLET (FP) PO SCH (23:06)
[2023-07-03] MEDS: levETIRAcetam 500 MG TABLET (FP) PO SCH (23:06)
[2023-07-03] MEDS: MELATONIN 5 MG TABLETS PO SCH (23:06)
[2023-07-03] MEDS: chlordiazePOXIDE HCL 25 MG CAPSULE PO SCH (23:06)
[2023-07-04] MEDS: NITROFURANTOIN MACROCRYSTAL 50 MG CAPSULE (FP) PO SCH ×5 (01:20→23:40)
[2023-07-04] MEDS: METHOCARBAMOL 500 MG TABLET PO PRN (05:57)
[2023-07-04] MEDS: chlordiazePOXIDE HCL 25 MG CAPSULE PO SCH ×4 (05:58→22:53)
[2023-07-04] MEDS: PRENATAL VITAMINS W/ FOLIC ACID TABLET (FP) PO SCH (10:13)
[2023-07-04] MEDS: levETIRAcetam 500 MG TABLET (FP) PO SCH ×2 (10:16→22:53)
[2023-07-04] MEDS: THIAMINE HCL 100 MG TABLET (FP) PO SCH (22:53)
[2023-07-04] MEDS: MELATONIN 5 MG TABLETS PO SCH (22:53)
[2023-07-05] MEDS: chlordiazePOXIDE HCL 25 MG CAPSULE PO SCH ×4 (05:46→22:44)
[2023-07-05] MEDS: NITROFURANTOIN MACROCRYSTAL 50 MG CAPSULE (FP) PO SCH ×5 (05:46→23:50)
[2023-07-05] MEDS ORDERED: methaDONE HCL 10 MG TABLET (FOR DETOX USE ONLY) PO ONE (10:00)
[2023-07-05] MEDS: PRENATAL VITAMINS W/ FOLIC ACID TABLET (FP) PO SCH (11:09)
[2023-07-05] MEDS: levETIRAcetam 500 MG TABLET (FP) PO SCH ×2 (11:09→22:44)
[2023-07-05] MEDS: METHOCARBAMOL 500 MG TABLET PO PRN ×2 (17:39→22:45)
[2023-07-05] MEDS: THIAMINE HCL 100 MG TABLET (FP) PO SCH (22:44)
[2023-07-05] MEDS: MELATONIN 5 MG TABLETS PO SCH (22:44)
[2023-07-06] MEDS ORDERED: chlordiazePOXIDE HCL 10 MG CAPSULE PO PRN
[2023-07-06] MEDS: chlordiazePOXIDE HCL 10 MG CAPSULE PO SCH ×4 (05:42→23:17)
[2023-07-06] MEDS: NITROFURANTOIN MACROCRYSTAL 50 MG CAPSULE (FP) PO SCH ×3 (06:14→17:53)
[2023-07-06] MEDS: PRENATAL VITAMINS W/ FOLIC ACID TABLET (FP) PO SCH (10:47)
[2023-07-06] MEDS: levETIRAcetam 500 MG TABLET (FP) PO SCH ×2 (10:48→23:11)
[2023-07-06] MEDS: cloNIDine HCL 0.1 MG TABLET PO PRN ×2 (10:50→17:59)
[2023-07-06] MEDS: LIDOCAINE 4% PATCH TP SCH (12:48)
[2023-07-06 21:28] VITALS: RESP 18
[2023-07-06] MEDS ORDERED: LIDOCAINE PATCH REMOVAL MC SCH (22:00)
[2023-07-06] MEDS: THIAMINE HCL 100 MG TABLET (FP) PO SCH (23:15)
[2023-07-06] MEDS: MELATONIN 5 MG TABLETS PO SCH (23:15)
[2023-07-07] MEDS: NITROFURANTOIN MACROCRYSTAL 50 MG CAPSULE (FP) PO SCH ×3 (00:57→11:45)
[2023-07-07] MEDS ORDERED: chlordiazePOXIDE HCL 10 MG CAPSULE PO SCH (05:00)
[2023-07-07] MEDS: PRENATAL VITAMINS W/ FOLIC ACID TABLET (FP) PO SCH (09:32)
[2023-07-07] MEDS: levETIRAcetam 500 MG TABLET (FP) PO SCH (09:32)
[2023-07-07 09:35] VITALS: BP 116/70; PULSE 78; TEMP 96.9
[2023-07-07] MEDS: LIDOCAINE 4% PATCH TP SCH (09:35)
[2023-07-07] MEDS ORDERED: methaDONE HCL 10 MG TABLET (FOR DETOX USE ONLY) PO ONE (10:00)
[2023-07-08] MEDS ORDERED: chlordiazePOXIDE HCL 10 MG CAPSULE PO ONE (05:00)
== END 2023-07-07 13:25 | disposition left against medical advice (07) | DRG 770 ==
LOC: YASAS 09:02 → Y6N 21:13
PROVIDERS: ADMIT Allergy & Immunology; ATTEND Surgery
PROC: HZ2ZZZZ Detoxification Services for Substance Abuse Treatment (ICD-10-PCS; principal; 2023-07-03)
DX: F11.23 Opioid dependence with withdrawal (principal); F10.230 Alcohol dependence with withdrawal, uncomplicated; F14.20 Cocaine dependence, uncomplicated; F17.210 Nicotine dependence, cigarettes, uncomplicated; Z28.310 Unvaccinated for COVID-19; Z28.9 Immunization not carried out for unspecified reason
CPT/HCPCS: 36415; 70450-TC; 72125-TC; 80053; 80177; 81025; 82962; 83735; 85025; 85610; 85730; 86850; 86900; 86901; 87635; 99283-25

== ENCOUNTER 2023-07-28 08:15 | Inpatient (IN) | payer OTHER ==
[2023-07-28 09:42] VITALS: BMI 27.2
[2023-07-28] MEDS ORDERED: NICOTINE 21 MG/24 HOURS TOPICAL PATCH TD PRN (11:04)
[2023-07-28] MEDS ORDERED: DICYCLOMINE HCL 10 MG CAPSULE PO PRN (11:04)
[2023-07-28] MEDS ORDERED: MAGNESIUM HYDROX 2400MG/30ML ORAL SUSPENSION 30 ML CUP PO PRN (11:04)
[2023-07-28] MEDS ORDERED: IBUPROFEN 400 MG TABLET (FP) PO PRN (11:04)
[2023-07-28] MEDS ORDERED: POLYETHYLENE GLYCOL (HEALTHYLAX) 3350 17 GM PACKET PO PRN (11:04)
[2023-07-28] MEDS ORDERED: BISMUTH SUBSALICYLATE 524 MG/30 ML PO PRN (11:04)
[2023-07-28] MEDS ORDERED: ACETAMINOPHEN 325 MG TABLET (FP) PO PRN (11:04)
[2023-07-28] MEDS ORDERED: BENZOCAINE/MENTHOL (CHLORASEPTIC ) LOZENGE MM PRN (11:04)
[2023-07-28] MEDS ORDERED: NALOXONE HCL (KLOXXADO) 8 MG SPRAY NS PRN (11:04)
[2023-07-28] MEDS ORDERED: guaiFENesin 600 MG TABLET.ER (FP) PO PRN (11:04)
[2023-07-28] MEDS ORDERED: NALOXONE HCL 0.4 MG/ML VIAL IM PRN (11:04)
[2023-07-28] MEDS ORDERED: MAG HYDROX/AL HYDROX/SIMETH 30 ML UNIT-DOSE CUP PO PRN (11:04)
[2023-07-28] MEDS ORDERED: LOPERAMIDE HCL 2 MG CAPSULE PO PRN (11:04)
[2023-07-28] MEDS ORDERED: BENZONATATE 200 MG CAPSULE PO PRN (11:04)
[2023-07-28] MEDS ORDERED: ONDANSETRON *ODT* 4 MG TABLET SL PRN (11:04)
[2023-07-28] MEDS: levETIRAcetam 500 MG TABLET (FP) PO SCH ×2 (12:47→22:37)
[2023-07-28] MEDS: METHOCARBAMOL 500 MG TABLET PO PRN (19:09)
[2023-07-28] MEDS: IBUPROFEN 600 MG TABLET (FP) PO PRN (19:09)
[2023-07-28] MEDS: hydrOXYzine PAMOATE 25 MG CAPSULE (FP) PO PRN (19:09)
[2023-07-28] MEDS ORDERED: LORazepam 2 MG/ML SDV VIAL IM ONE (20:00)
[2023-07-28] MEDS: THIAMINE HCL 100 MG TABLET (FP) PO SCH (22:37)
[2023-07-28] MEDS: MELATONIN 5 MG TABLETS PO SCH (22:37)
[2023-07-28] MEDS: ATORVASTATIN CA 40 MG TABLET (FP) PO SCH (22:37)
[2023-07-29] MEDS ORDERED: levETIRAcetam 500 MG TABLET (FP) PO ONE (00:05)
[2023-07-29] MEDS ORDERED: methaDONE HCL 10 MG TABLET (FOR DETOX USE ONLY) PO ONE (09:24)
[2023-07-29] MEDS: diazePAM 5 MG TABLET PO SCH ×3 (10:29→22:31)
[2023-07-29] MEDS: PRENATAL VITAMINS W/ FOLIC ACID TABLET (FP) PO SCH (10:30)
[2023-07-29] MEDS: levETIRAcetam 500 MG TABLET (FP) PO SCH ×2 (10:30→22:31)
[2023-07-29] MEDS: THIAMINE HCL 100 MG TABLET (FP) PO SCH (22:30)
[2023-07-29] MEDS: ATORVASTATIN CA 40 MG TABLET (FP) PO SCH (22:30)
[2023-07-29] MEDS: MELATONIN 5 MG TABLETS PO SCH (22:30)
[2023-07-29] MEDS: SENNOSIDES/DOCUSATE COMBO (SENNA PLUS) TABLET (UD) PO SCH (23:18)
[2023-07-30] MEDS: diazePAM 5 MG TABLET PO SCH ×3 (06:08→22:30)
[2023-07-30] MEDS: PRENATAL VITAMINS W/ FOLIC ACID TABLET (FP) PO SCH (09:42)
[2023-07-30] MEDS: levETIRAcetam 500 MG TABLET (FP) PO SCH ×2 (09:42→22:30)
[2023-07-30] MEDS: METHOCARBAMOL 500 MG TABLET PO PRN ×2 (09:42→17:49)
[2023-07-30 11:37] LABS: POTASSIUM 4.3 mmol/L (3.5-5.1)
[2023-07-30 11:39] LABS: ALBUMIN 3.2 g/dl (3.4-5.0); BLOOD UREA NITROGEN 12.4 mg/dL (7-18); CALCIUM 8.4 mg/dL (8.5-10.1)
[2023-07-30 11:40] LABS: HEMATOCRIT 38.9 % (32.4-45.2); HEMOGLOBIN 12.5 GM/dL (10.7-15.3); MCH 28.3 pg (25.7-33.7); MCHC 32.2 g/dl (32.0-36.0); MEAN PLT VOLUME 7.9 fl (7.5-11.1); PLATELET COUNT 276 10^3/uL (134-434); RBC 4.42 M/mm3 (3.60-5.2); RDW 15.3 % (11.6-15.6); WHITE BLOOD COUNT 4.8 K/mm3 (4.0-10.0)
[2023-07-30 11:42] LABS: CREATININE 0.6 mg/dL (0.55-1.3)
[2023-07-30 11:44] LABS: BILIRUBIN,TOTAL 0.3 mg/dL (0.2-1); TOT PROT 6.8 g/dl (6.4-8.2)
[2023-07-30] MEDS: LACTULOSE 20 GM/30 ML UDC (FOR ORAL USE ONLY) PO SCH ×2 (17:50→22:38)
[2023-07-30] MEDS: ATORVASTATIN CA 40 MG TABLET (FP) PO SCH (22:30)
[2023-07-30] MEDS: MELATONIN 5 MG TABLETS PO SCH (22:30)
[2023-07-30] MEDS: THIAMINE HCL 100 MG TABLET (FP) PO SCH (22:30)
[2023-07-30] MEDS: SENNOSIDES/DOCUSATE COMBO (SENNA PLUS) TABLET (UD) PO SCH (22:38)
[2023-07-31] MEDS: diazePAM 5 MG TABLET PO SCH ×2 (07:00→18:00)
[2023-07-31] MEDS ORDERED: methaDONE HCL 10 MG TABLET (FOR DETOX USE ONLY) PO ONE (10:00)
[2023-07-31] MEDS: PRENATAL VITAMINS W/ FOLIC ACID TABLET (FP) PO SCH (10:06)
[2023-07-31] MEDS: levETIRAcetam 500 MG TABLET (FP) PO SCH ×2 (10:06→22:23)
[2023-07-31] MEDS: LACTULOSE 20 GM/30 ML UDC (FOR ORAL USE ONLY) PO SCH ×4 (10:07→22:23)
[2023-07-31] MEDS: ATORVASTATIN CA 40 MG TABLET (FP) PO SCH (22:23)
[2023-07-31] MEDS: THIAMINE HCL 100 MG TABLET (FP) PO SCH (22:23)
[2023-07-31] MEDS: MELATONIN 5 MG TABLETS PO SCH (22:23)
[2023-07-31] MEDS: METHOCARBAMOL 500 MG TABLET PO PRN (22:24)
[2023-07-31] MEDS: SENNOSIDES/DOCUSATE COMBO (SENNA PLUS) TABLET (UD) PO SCH (22:24)
[2023-08-01] MEDS: IBUPROFEN 600 MG TABLET (FP) PO PRN ×2 (05:52→16:58)
[2023-08-01] MEDS ORDERED: diazePAM 5 MG TABLET PO ONE (06:00)
[2023-08-01] MEDS: levETIRAcetam 500 MG TABLET (FP) PO SCH ×2 (09:49→22:20)
[2023-08-01] MEDS: PRENATAL VITAMINS W/ FOLIC ACID TABLET (FP) PO SCH (09:49)
[2023-08-01] MEDS: LACTULOSE 20 GM/30 ML UDC (FOR ORAL USE ONLY) PO SCH ×4 (09:52→22:19)
[2023-08-01] MEDS: MELATONIN 5 MG TABLETS PO SCH (22:19)
[2023-08-01] MEDS: SENNOSIDES/DOCUSATE COMBO (SENNA PLUS) TABLET (UD) PO SCH (22:19)
[2023-08-01] MEDS: THIAMINE HCL 100 MG TABLET (FP) PO SCH (22:19)
[2023-08-01] MEDS: ATORVASTATIN CA 40 MG TABLET (FP) PO SCH (22:20)
[2023-08-02] MEDS ORDERED: methaDONE HCL 10 MG TABLET (FOR DETOX USE ONLY) PO ONE (10:00)
[2023-08-02] MEDS: IBUPROFEN 600 MG TABLET (FP) PO PRN ×2 (10:35→18:33)
[2023-08-02] MEDS: levETIRAcetam 500 MG TABLET (FP) PO SCH ×2 (10:35→22:31)
[2023-08-02] MEDS: PRENATAL VITAMINS W/ FOLIC ACID TABLET (FP) PO SCH (10:35)
[2023-08-02] MEDS: LACTULOSE 20 GM/30 ML UDC (FOR ORAL USE ONLY) PO SCH ×4 (10:37→22:41)
[2023-08-02] MEDS: hydrOXYzine PAMOATE 25 MG CAPSULE (FP) PO PRN (14:24)
[2023-08-02] MEDS: METHOCARBAMOL 500 MG TABLET PO PRN (17:44)
[2023-08-02] MEDS ORDERED: BENZOCAINE 20 % GEL TUBE MM PRN (19:21)
[2023-08-02 21:13] VITALS: RESP 18
[2023-08-02] MEDS ORDERED: SUVOREXANT 10 MG TABLET PO PRN (22:00)
[2023-08-02] MEDS: THIAMINE HCL 100 MG TABLET (FP) PO SCH (22:30)
[2023-08-02] MEDS: ATORVASTATIN CA 40 MG TABLET (FP) PO SCH (22:30)
[2023-08-02] MEDS: SENNOSIDES/DOCUSATE COMBO (SENNA PLUS) TABLET (UD) PO SCH (22:31)
[2023-08-03] MEDS: hydrOXYzine PAMOATE 25 MG CAPSULE (FP) PO PRN (06:08)
[2023-08-03] MEDS: IBUPROFEN 600 MG TABLET (FP) PO PRN (06:09)
[2023-08-03] MEDS: METHOCARBAMOL 500 MG TABLET PO PRN (06:09)
[2023-08-03 09:31] VITALS: BP 116/67; PULSE 82; TEMP 97.3
[2023-08-03] MEDS: LACTULOSE 20 GM/30 ML UDC (FOR ORAL USE ONLY) PO SCH (10:16)
[2023-08-03] MEDS: PRENATAL VITAMINS W/ FOLIC ACID TABLET (FP) PO SCH (10:17)
[2023-08-03] MEDS: levETIRAcetam 500 MG TABLET (FP) PO SCH (10:17)
== END 2023-08-03 10:59 | disposition home or self-care (01) | DRG 773 ==
LOC: YASAS 08:15 → Y3N 11:18 → Y6N 12:07
PROVIDERS: ADMIT Allergy & Immunology; ATTEND Surgery
PROC: HZ2ZZZZ Detoxification Services for Substance Abuse Treatment (ICD-10-PCS; principal; 2023-07-28)
DX: F11.23 Opioid dependence with withdrawal (principal); F10.230 Alcohol dependence with withdrawal, uncomplicated; F14.20 Cocaine dependence, uncomplicated; F17.210 Nicotine dependence, cigarettes, uncomplicated; F41.9 Anxiety disorder, unspecified; G40.909 Epilepsy, unspecified, not intractable, without status epilepticus; K08.89 Other specified disorders of teeth and supporting structures; R94.31 Abnormal electrocardiogram [ECG] [EKG]; Z28.310 Unvaccinated for COVID-19; Z28.29 Immunization not carried out because of patient decision for other reason
CPT/HCPCS: 36415; 80053; 80177; 81025; 82140; 82962; 85027; 86780; 87635; 87811; 93005; 93010

== ENCOUNTER 2023-07-28 20:00 | Emergency (ER) | payer OTHER ==
[2023-07-28 20:14] VITALS: RESP 19; TEMP 97.9; BMI 27.2
[2023-07-28 20:50] LABS: BASO % 1.2 % (0-2.0); EOS % 2.8 % (0-4.5); HEMATOCRIT 36.2 % (32.4-45.2); HEMOGLOBIN 11.8 GM/dL (10.7-15.3); LYMPH % 39.4 % (8-40); MCHC 32.4 g/dl (32.0-36.0); MEAN CELL VOLUME 86.2 fl (80-96); MEAN PLT VOLUME 7.3 fl (7.5-11.1); MONO % 12.3 % (3.8-10.2); NEUT % 44.3 % (42.8-82.8); PLATELET COUNT 261 10^3/uL (134-434); RBC 4.21 M/mm3 (3.60-5.2); RDW 15.6 % (11.6-15.6); WHITE BLOOD COUNT 3.5 K/mm3 (4.0-10.0)
[2023-07-28 21:13] LABS: POTASSIUM 3.6 mmol/L (3.5-5.1)
[2023-07-28 21:16] LABS: CALCIUM 8.8 mg/dL (8.5-10.1)
[2023-07-28 21:17] LABS: ALBUMIN 3.1 g/dl (3.4-5.0); BLOOD UREA NITROGEN 17.5 mg/dL (7-18); MAGNESIUM 1.9 mg/dL (1.8-2.4)
[2023-07-28 21:20] LABS: CREATININE 0.7 mg/dL (0.55-1.3)
[2023-07-28 21:22] LABS: BILIRUBIN,TOTAL 1.1 mg/dL (0.2-1); TOT PROT 6.4 g/dl (6.4-8.2)
[2023-07-28 22:57] VITALS: BP 106/69; PULSE 76
== END 2023-07-28 23:16 | disposition home or self-care (01) ==
LOC: JER 20:00
PROC: 3E033GC Introduction of Other Therapeutic Substance into Peripheral Vein, Percutaneous Approach (ICD-10-PCS; principal; 2023-07-28)
DX: R56.9 Unspecified convulsions (principal); M79.10 Myalgia, unspecified site; Z20.822 Contact with and (suspected) exposure to COVID-19
CPT/HCPCS: 0241U-QW; 36415; 80053; 80177; 83735; 85025; 99284-25